=== PATIENT | male | born 1930 | race Caucasian/White ===

== ENCOUNTER 2018-02-09 07:42 | Emergency (ER) | payer OTHER ==
[2018-02-09] MEDS ORDERED: FLEET ENEMA ADULT PR ONE (08:12)
--- NOTE | 2018-02-09 09:05 | ER ---
Nurse's Notes [facility] Name: Ramone Clark Age: 87 yrs Sex: Male : 1930 Arrival Date: 02/09/2018 Time: 07:44 Bed 5 Private MD: Dennis Mandujano C Diagnosis: Constipation;Fecal impaction Presentation: 02/09 07:53 Presenting complaint: Patient states: it started with diarrhea few days ago and i took hj Imodium after which the diarrhea stopped and i couldn't pooped anymore, reports no BM for 3 days; reports abd pain; denies N/V;. Transition of care: patient was not received from another setting of care. Onset of symptoms was February 09, 2018. Risk Assessment: Do you want to hurt yourself or someone else? Patient reports no desire to harm self or others. Initial Sepsis Screen: Does the patient meet any 2 criteria? No. Patient's initial sepsis screen is negative. Does the patient have a suspected source of infection? No. Patient's initial sepsis screen is negative. Care prior to arrival: None. 07:53 Method Of Arrival: Ambulatory 07:53 Acuity: CARRIE 3 hj Triage Assessment: 07:55 General: Appears in no apparent distress. uncomfortable, Behavior is calm, cooperative, hj appropriate for age. Pain: Complains of pain in abdomen. GI: Reports lower abdominal pain, constipation, Patient currently denies nausea. 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 - Social history:: Smoking status: Patient/guardian denies using tobacco, Patient/guardian denies using alcohol. - Ebola Screening: : Patient negative for fever greater than or equal to 101.5 degrees Fahrenheit, and additional compatible Ebola Virus Disease symptoms Patient denies exposure to infectious person Patient denies travel to an Ebola-affected area in the 21 days before illness onset. Screenin:55 Abuse screen: Denies threats or abuse. Denies injuries from another. Nutritional hj screening: No deficits noted. Tuberculosis screening: No symptoms or risk factors identified. Fall Risk None identified. Assessment: 07:56 GI: Bowel sounds Abd is soft Abdomen is tender to palpation. hj 08:15 General: Appears in no apparent distress. Behavior is calm, cooperative. Pain: Denies la1 pain. Neuro: Level of Consciousness is awake, alert, obeys commands. Cardiovascular: Capillary refill < 3 seconds Patient's skin is warm and dry. Respiratory: Airway is patent Respiratory effort is even, unlabored, Respiratory pattern is regular, symmetrical. GI: Reports constipation. : No signs and/or symptoms were reported regarding the genitourinary system. 08:49 Reassessment: pt had BM x3 with soap suds enema, states he feels much better. la1 Vital Signs: 07:53 BP 100 / 67; Pulse 71; Resp 18; Temp 97.8(TE); Pulse Ox 98% on R/A; Weight 61.23 kg; hj Height 5 ft. 8 in. (172.72 cm); 07:53 Body Mass Index 20.53 (61.23 kg, 172.72 cm) ED Course: 07:44 Patient arrived in ED. sb2 07:45 Dennis Mandujano MD is Private Physician. sb2 07:48 Irving Head MD is Attending Physician. gs 07:53 Cade Jaime RN is Primary Nurse. hj 07:55 Triage completed. hj 07:56 Arm band placed on right wrist. hj 08:00 Patient has correct armband on for positive identification. Bed in low position. Call light in reach. Side rails up X 1. Adult w/ patient. 08:50 No provider procedures requiring assistance completed. Patient did not have IV access la1 during this emergency room visit. Administered Medications: 08:13 Drug: Fleet Enema 133 ml Route: NE; hj 08:36 Follow up: Response: No adverse reaction; No change in condition la1 Outcome: 09:05 Discharge ordered by . carlos 09:05 Discharged to home ambulatory. la1 09:05 Condition: stable 09:05 Discharge instructions given to patient, Instructed on discharge instructions, follow up and referral plans. medication usage, Demonstrated understanding of instructions, follow-up care. 09:06 Patient left the ED. la1 Signatures: Zia Underwood RN RN la1 Cade Jaime RN RN hj Starr, Gregory, MD MD gs Billeau, Sheri sb2 Corrections: (The following items were deleted from the chart) 07:56 07:55 GI: Reports lower abdominal pain, constipation, nausea, silvia vega
--- NOTE | 2018-02-09 09:05 | EDPHYS ---
Physician Documentation [facility] Name: Ramone Clark Age: 87 yrs Sex: Male : 1930 Arrival Date: 02/09/2018 Time: 07:44 Bed 5 Private MD: Dennis Mandujano C ED Physician Irving Head HPI: 02/09 09:15 This 87 yrs old Male presents to ER via Ambulatory with complaints of gs Constipation. 09:15 Onset: The symptoms/episode began/occurred 1 week(s) ago, and became persistent. gs Modifying factors: The symptoms are alleviated by bm The symptoms are aggravated by nothing. Associate signs and symptoms: Pertinent negatives: abdominal pain, dysuria, fever, lower GI bleeding. The patient has experienced similar episodes in the past, chronically. 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 - Social history:: Smoking status: Patient/guardian denies using tobacco, Patient/guardian denies using alcohol. - Ebola Screening: : Patient negative for fever greater than or equal to 101.5 degrees Fahrenheit, and additional compatible Ebola Virus Disease symptoms Patient denies exposure to infectious person Patient denies travel to an Ebola-affected area in the 21 days before illness onset. ROS: 09:15 All other systems are negative. gs Exam: 09:15 Head/Face: Normocephalic, atraumatic. Eyes: Pupils equal round and reactive to light, gs extra-ocular motions intact. Lids and lashes normal. Conjunctiva and sclera are non-icteric and not injected. Cornea within normal limits. Periorbital areas with no swelling, redness, or edema. ENT: Nares patent. No nasal discharge, no septal abnormalities noted. Tympanic membranes are normal and external auditory canals are clear. Oropharynx with no redness, swelling, or masses, exudates, or evidence of obstruction, uvula midline. Mucous membranes moist. Neck: Trachea midline, no thyromegaly or masses palpated, and no cervical lymphadenopathy. Supple, full range of motion without nuchal rigidity, or vertebral point tenderness. No Meningismus. Chest/axilla: Normal chest wall appearance and motion. Nontender with no deformity. No lesions are appreciated. Cardiovascular: Regular rate and rhythm with a normal S1 and S2. No gallops, murmurs, or rubs. Normal PMI, no JVD. No pulse deficits. Respiratory: Lungs have equal breath sounds bilaterally, clear to auscultation and percussion. No rales, rhonchi or wheezes noted. No increased work of breathing, no retractions or nasal flaring. Back: No spinal tenderness. No costovertebral tenderness. Full range of motion. Skin: Warm, dry with normal turgor. Normal color with no rashes, no lesions, and no evidence of cellulitis. MS/ Extremity: Pulses equal, no cyanosis. Neurovascular intact. Full, normal range of motion. Neuro: Awake and alert, GCS 15, oriented to person, place, time, and situation. Cranial nerves II-XII grossly intact. Motor strength 5/5 in all extremities. Sensory grossly intact. Cerebellar exam normal. Normal gait. 09:15 Constitutional: The patient appears alert, awake. 09:15 Abdomen/GI: Palpation: abdomen is soft and non-tender, in all quadrants, Rectal exam: Stool: normal, fecal impaction, that is mild, the exam is chaperoned by the nurse. Vital Signs: 07:53 BP 100 / 67; Pulse 71; Resp 18; Temp 97.8(TE); Pulse Ox 98% on R/A; Weight 61.23 kg; hj Height 5 ft. 8 in. (172.72 cm); 07:53 Body Mass Index 20.53 (61.23 kg, 172.72 cm) Procedures: 09:15 Performed enema tolerated well. MDM: 08:01 Patient medically screened. 09:15 Data reviewed: vital signs, nurses notes. Response to treatment: the patient's symptoms gs have markedly improved after treatment, and as a result, I will discharge patient. 02/09 08:37 Order name: Heydi. Order: Soap Suds Enema; Complete Time: 08:37 la1 Administered Medications: 08:13 Drug: Fleet Enema 133 ml Route: DC; 08:36 Follow up: Response: No adverse reaction; No change in condition la1 Disposition: 02/09/18 09:05 Discharged to Home. Impression: Constipation, Fecal impaction. - Condition is Stable. - Discharge Instructions: Constipation, Adult, [id number]. - Prescriptions for Miralax 17 gram/dose Oral - take 1 packet by ORAL route once daily dilute powder in 8 ounces of water or juice; 1 bottle. - Medication Reconciliation Form, Thank You Letter, Antibiotic Education, Prescription Opioid Use form. - Follow up: Private Physician; When: 2 - 3 days; Reason: Re-evaluation by your physician. Signatures: Zia Underwood RN RN [facility] Cade Jaime RN RN Irving Head MD MD Corrections: (The following items were deleted from the chart) 09:05 09:05 02/09/2018 09:05 Discharged to Home. Impression: Constipation. Condition is gs Stable. Forms are Medication Reconciliation Form, Thank You Letter, Antibiotic Education, Prescription Opioid Use. Follow up: Private Physician; When: 2 - 3 days; Reason: Re-evaluation by your physician. 09:06 09:05 02/09/2018 09:05 Discharged to Home. Impression: Constipation; Fecal impaction. la1 Condition is Stable. Forms are Medication Reconciliation Form, Thank You Letter, Antibiotic Education, Prescription Opioid Use. Follow up: Private Physician; When: 2 - 3 days; Reason: Re-evaluation by your physician.
[2018-02-09 09:10] VITALS: BP 100/67; TEMP 97.8; O2SAT 98
== END 2018-02-09 09:06 | disposition home or self-care (01) ==
LOC: ER 07:42
DX: K56.41 Fecal impaction (principal); I10 Essential (primary) hypertension; E78.5 Hyperlipidemia, unspecified; Z79.01 Long term (current) use of anticoagulants; Z95.2 Presence of prosthetic heart valve
CPT/HCPCS: 99283

== ENCOUNTER 2018-04-19 09:46 | Emergency (ER) | payer OTHER ==
[2018-04-19] MEDS ORDERED: ACETAMINOPHEN 325 MG TABLET ONE (10:23)
--- NOTE | 2018-04-19 11:00 | RAD REPORT ---
EXAM DESCRIPTION: CT - [id number] - 04/19/2018 10:43 am CLINICAL HISTORY: Trauma, head and neck injury. fall COMPARISON: Spine Lumbar Wo Con dated 04/19/2018 TECHNIQUE: Axial 5 mm thick images of the head were obtained. Axial 2 mm thick images of the cervical spine were obtained with sagittal and coronal reconstruction images generated and reviewed. All CT scans are performed using dose optimization technique as appropriate and may include automated exposure control or mA/KV adjustment according to patient size. FINDINGS: CT HEAD WITHOUT CONTRAST: No acute hemorrhage, hydrocephalus or extra-axial collection is identified.Mild generalized brain atr ophy.No areas of brain edema or midline shift. Moderate mucosal thickening involves the left sphenoid sinus. Paranasal sinuses mastoids are otherwis e clear.The calvarium is intact. CT CERVICAL SPINE WITHOUT CONTRAST: No fracture or subluxation.Mild spondylosis of the cervical spine.No prevertebral soft tissues swelli ng is identified. IMPRESSION: No acute intracranial or cervical spine findings.
--- NOTE | 2018-04-19 11:02 | RAD REPORT ---
EXAM DESCRIPTION: CT - Spine Lumbar Wo Con - 04/19/2018 10:44 am CLINICAL HISTORY: Radiculopathy. fall, low back pain COMPARISON: SPINE THORACIC-W/SWIMMERS dated 08/20/2011 TECHNIQUE: Axial noncontrast CT imaging of the lumbar spine was performed with coronal and sagittal re-formatted images. All CT scans are performed using dose optimization technique as appropriate and may include automated exposure control or mA/KV adjustment according to patient size. FINDINGS: Mild compression deformity is seen affecting the L1 vertebral body, likely acute. Loss of vertebral body height estimated at 10%. Mild reticulation of the surrounding paraspinal tissues. No c anal compromise. Heavy aortic atherosclerosis. Several renal cysts are present. IMPRESSION: Mild anterior wedge compression fracture affecting L1 vertebral body, acute in appearanc e. No canal compromise.
[2018-04-19] MEDS ORDERED: MORPHINE 2 MG/ML SYR ONE (11:30)
--- NOTE | 2018-04-19 13:15 | EDPHYS ---
Physician Documentation [facility] Name: Ramnoe Clark Age: 87 yrs Sex: Male : 1930 Arrival Date: 04/19/2018 Time: 09:49 Bed 20 Private MD: Dennis Mandujano C ED Physician Gregory Devine HPI: 04/19 10:17 This 87 yrs old Male presents to ER via Ambulatory with complaints of Fall jmm Injury. 10:17 Details of fall: The patient fell from an upright position. Onset: The symptoms/episode jmm began/occurred acutely, just prior to arrival. Associated injuries: The patient sustained injury to the low back. This is a 87 year old male with a history of hlp, htn that presents to the ED with complaints of lower back pain. Patient states he lost balance while turning from a standing position. Patient unsure whether he hit his head. Denies radiation of pain, denies fecal incontience, denies urinary retention. Denies numbness. . Historical: - Allergies: 10:05 No Known Allergies; sg - PMHx: 10:05 Hyperlipidemia; Hypertension; sg - Immunization history: Last tetanus immunization: unknown. - Social history:: Smoking status: Patient/guardian denies using tobacco. - Ebola Screening: : No symptoms or risks identified at this time. ROS: 10:17 Constitutional: Negative for fever, chills, and weight loss, Cardiovascular: Negative jmm for chest pain, palpitations, and edema, Respiratory: Negative for shortness of breath, cough, wheezing, and pleuritic chest pain. 10:17 Back: Positive for pain with movement. 10:17 Neuro: Negative for headache, loss of consciousness. 10:17 All other systems are negative. Exam: 10:17 Constitutional: This is a well developed, well nourished patient who is awake, alert, jmm and in no acute distress. Head/Face: atraumatic. Eyes: EOMI, no conjunctival erythema appreciated ENT: Moist Mucus Membranes Neck: Trachea midline, Supple 10:17 Chest/axilla: Inspection: normal, Palpation: is normal. 10:17 Cardiovascular: Rate: normal, Rhythm: regular, Pulses: no pulse deficits are appreciated. 10:17 Respiratory: the patient does not display signs of respiratory distress, Respirations: normal, Breath sounds: are clear throughout. 10:17 Abdomen/GI: Inspection: abdomen appears normal, Bowel sounds: normal. 10:17 Back: ROM is normal. 10:17 Musculoskeletal/extremity: ROM: intact in all extremities. 10:17 Skin: Appearance: Color: 10:17 Neuro: Orientation: is normal, Mentation: is normal, Memory: is normal, Cranial nerves: 10:17 Psych: Behavior/mood is pleasant, cooperative. Vital Signs: 10:07 BP 145 / 86; Pulse 60; Resp 18; Temp 97.7; Pulse Ox 100% on R/A; Weight 77.11 kg; Pain sg 7/10; 11:07 BP 139 / 74; Pulse 60; Resp 16; Pulse Ox 99% on R/A; Pain 7/10; em 11:50 BP 128 / 67; Pulse 59; Resp 18; Pulse Ox 95% on R/A; em 12:30 BP 143 / 77; Pulse 56; Resp 18; Pulse Ox 99% on R/A; Pain 6/10; em Cleveland Coma Score: 10:07 Eye Response: spontaneous(4). Verbal Response: oriented(5). Motor Response: obeys sg commands(6). Total: 15. Trauma Score (Adult): 10:07 Eye Response: spontaneous(1); Verbal Response: oriented(1); Motor Response: obeys sg commands(2); Systolic BP: > 89 mm Hg(4); Respiratory Rate: 10 to 29 per min(4); [place] Score: 15; Trauma Score: 12 MDM: 10:06 Patient medically screened. [facility] 13:13 Data reviewed: vital signs, nurses notes. Counseling: I had a detailed discussion with higinio the patient and/or guardian regarding: the historical points, exam findings, and any diagnostic results supporting the discharge/admit diagnosis, radiology results, the need for outpatient follow up, to return to the emergency department if symptoms worsen or persist or if there are any questions or concerns that arise at home. ED course: Patient is able to ambulate in the ED. Extensor hallucis longus intact bilaterally. Patient prescribed tylenol with codeine with opiod precautions. Family will closely monitor patient. Patient has no symptoms currently concerning for cord compression. Advised to follow up with spine surgery. Given return precautions. . 04/19 10:11 Order name: CT Head C Spine; Complete Time: 11:07 [facility] 04/19 10:11 Order name: CT Lumbar Spine Wo Con; Complete Time: 11:07 [facility] Administered Medications: 10:13 Drug: Tylenol 650 mg Route: PO; em 11:09 Follow up: Response: No adverse reaction em 11:25 Drug: morphine 2 mg Route: IM; Site: right deltoid; em 12:30 Follow up: Response: No adverse reaction; Pain is decreased em Disposition: 04/19/18 13:15 Discharged to Home. Impression: Wedge compression fracture of unspecified lumbar vertebra. - Condition is Stable. - Discharge Instructions: Spinal Compression Fracture. - Prescriptions for Tylenol- Codeine #3 300-30 mg Oral Tablet - take 1 tablet by ORAL route every 6 hours As needed; 20 tablet. - Medication Reconciliation Form, Thank You Letter, Antibiotic Education, Prescription Opioid Use form. - Follow up: Dennis Mandujano MD; When: 2 - 3 days; Reason: Recheck today's complaints, Continuance of care, Re-evaluation by your physician. Follow up: Hu Colindres MD; When: 2 - 3 days; Reason: Recheck today's complaints, Continuance of care, Re-evaluation by your physician. Addendum: 04/21/2018 07:39 Co-signature as Attending Physician, Gregory Devine MD I agree with the assessment and c sevilla plan of care. Signatures: Dispatcher [employer] Lon Irizarry, RN RN Gregory Devine MD MD cha Mickail, Joel PA PA Conor Warren, DEPUTY CONTROLLER DEPUTY CONTROLLER Lurdes Herrera, RN RN Corrections: (The following items were deleted from the chart) 04/19 13:24 13:15 04/19/2018 13:15 Discharged to Home. Impression: Wedge compression fracture of em unspecified lumbar vertebra. Condition is Stable. Forms are Medication Reconciliation Form, Thank You Letter, Antibiotic Education, Prescription Opioid Use. Follow up: Dennis Mandujano; When: 2 - 3 days; Reason: Recheck today's complaints, Continuance of care, Re-evaluation by your physician. Follow up: Hu Colindres; When: 2 - 3 days; Reason: Recheck today's complaints, Continuance of care, Re-evaluation by your physician. higinio
--- NOTE | 2018-04-19 13:15 | ER ---
Nurse's Notes [facility] Name: Ramone Clark Age: 87 yrs Sex: Male : 1930 Arrival Date: 04/19/2018 Time: 09:49 Bed 20 Private MD: Dennis Mandujano C Diagnosis: Wedge compression fracture of unspecified lumbar vertebra Presentation: 04/19 10:05 Presenting complaint: Patient states: Reports became unbalanced while standing, fell sg hitting the Right side of back and Right hip area on the ground, denies any trauma to the head, denies LOC, reports is able to walk and stand but reports the pain is made worse by activity. Care prior to arrival: None. Mechanism of Injury: Fall from standing position. Trauma event details: Injury occurred in the [facility]. 10:05 Acuity: CARRIE 3 sg 10:05 Method Of Arrival: Ambulatory sg Historical: - Allergies: 10:05 No Known Allergies; sg - PMHx: 10:05 Hyperlipidemia; Hypertension; sg - Immunization history: Last tetanus immunization: unknown. - Social history:: Smoking status: Patient/guardian denies using tobacco. - Ebola Screening: : No symptoms or risks identified at this time. Screenin:10 Nutritional screening: No deficits noted. Fall Risk Ambulatory Aid- em Crutches/Cane/Walker (15 pts). Gait- Weak (10 pts.). Mental Status- Total Mann Fall Scale indicates Low Risk Score (25-44 pts). Side Rails Up X 2 Placed close to Nursing Station Family Present and informed to notify staff if they need to leave bedside. 10:11 Abuse screen: Denies threats or abuse. Denies injuries from another. Tuberculosis sg screening: No symptoms or risk factors identified. Never had TB. Primary Survey: 10:09 NO uncontrolled hemorrhage observed. A: The patient is alert. Airway: patent, No sg supplemental oxygen in use on arrival. Oral cavity: clear, Trachea midline. Breathing/Chest: Respiratory pattern: regular, Respiratory effort: spontaneous, unlabored, Breath sounds: clear, Chest inspection: symmetrical rise and fall of the chest. Circulation: Heart tones present. Skin color: pink, Skin temperature: warm, dry. Disability Alert. Exposure/Environment: There is no evidence of uncontrolled external bleeding. No obvious injuries are noted at this time. A warming method has been applied: A warm blanket has been provided to the patient. Secondary Survey: 10:10 HEENT: Head No injury/deformity Face No injury/deformity Eyes: No injury or deformity sg noted. Ears: clear Nose: clear Throat: No injury or deformity noted. Gastrointestinal: Abdomen is flat, non-distended, Palpation No deficit noted. : No signs and/or symptoms were reported regarding the genitourinary system. Musculoskeletal: Circulation, motion, and sensation intact. Range of motion: intact in all extremities, Swelling absent Reports pain in back and right hip. Assessment: 10:17 General: Appears in no apparent distress. uncomfortable, Behavior is calm, cooperative, em reports mechanical fall and landing on bottom, does not know if pt hit his head, son at bedside. Pain: Complains of pain in pelvis and back. Neuro: Level of Consciousness is awake, alert, obeys commands, Oriented to person, place, time, situation. Cardiovascular: Capillary refill < 3 seconds Patient's skin is warm and dry. Respiratory: Airway is patent Respiratory effort is even, unlabored, Respiratory pattern is regular, symmetrical. GI: Abdomen is flat. Derm: Skin is intact, is thin, Skin is pink, warm \T\ dry. Musculoskeletal: Range of motion: intact in all extremities. 10:22 Reassessment: I agree with previous assessment. hb 11:10 Reassessment: Patient appears in no apparent distress at this time. Patient and/or em family updated on plan of care and expected duration. Pain level reassessed. Patient is alert, oriented x 3, equal unlabored respirations, skin warm/dry/pink. reports feeling a little better, rates pain 7/10, Dr. Mandujano at bedside, family present. 11:50 Reassessment: Patient appears in no apparent distress at this time. Patient and/or em family updated on plan of care and expected duration. Pain level reassessed. Patient is alert, oriented x 3, equal unlabored respirations, skin warm/dry/pink. reports pain 6/10, provider notified. 13:00 Reassessment: Patient appears in no apparent distress at this time. Patient and/or em family updated on plan of care and expected duration. Pain level reassessed. Patient is alert, oriented x 3, equal unlabored respirations, skin warm/dry/pink. eating crackers and drinking water, family at bedside Patient states feeling better. Vital Signs: 10:07 BP 145 / 86; Pulse 60; Resp 18; Temp 97.7; Pulse Ox 100% on R/A; Weight 77.11 kg; Pain sg 7/10; 11:07 BP 139 / 74; Pulse 60; Resp 16; Pulse Ox 99% on R/A; Pain 7/10; em 11:50 BP 128 / 67; Pulse 59; Resp 18; Pulse Ox 95% on R/A; em 12:30 BP 143 / 77; Pulse 56; Resp 18; Pulse Ox 99% on R/A; Pain 6/10; em [place] Coma Score: 10:07 Eye Response: spontaneous(4). Verbal Response: oriented(5). Motor Response: obeys sg commands(6). Total: 15. Trauma Score (Adult): 10:07 Eye Response: spontaneous(1); Verbal Response: oriented(1); Motor Response: obeys sg commands(2); Systolic BP: > 89 mm Hg(4); Respiratory Rate: 10 to 29 per min(4); [place] Score: 15; Trauma Score: 12 ED Course: 09:49 Patient arrived in ED. mr 09:49 Dennis Mandujano MD is Private Physician. mr 10:01 Conor Vaelnzuela LVN is Primary Nurse. em 10:04 Ramone Nicholson PA is PHCP. jmm 10:04 Gregory Devine MD is Attending Physician. jm 10:06 Triage completed. sg 10:11 Patient has correct armband on for positive identification. Call light in reach. Side sg rails up X2. Adult w/ patient. Patient maintains SpO2 saturation greater than 95% on room air. 10:15 Thermoregulation: warm blanket given to patient. hb 10:43 CT Head C Spine In Process Unspecified. EDMS 10:44 CT Lumbar Spine Wo Con In Process Unspecified. EDMS 13:14 Dennis Mandujano MD is Referral Physician. jmm 13:14 Hu Colindres MD is Referral Physician. jmm 13:23 No provider procedures requiring assistance completed. Patient did not have IV access em during this emergency room visit. Administered Medications: 10:13 Drug: Tylenol 650 mg Route: PO; em 11:09 Follow up: Response: No adverse reaction em 11:25 Drug: morphine 2 mg Route: IM; Site: right deltoid; em 12:30 Follow up: Response: No adverse reaction; Pain is decreased em Intake: 10:07 PO: 0ml; Total: 0ml. sg Outcome: 13:15 Discharge ordered by . kacie 13:23 Discharged to home via wheelchair, with family. em 13:23 Condition: good 13:23 Patient's length of stay in the Emergency Department was greater than 2 hours. pain controlPatient's length of stay extended due to 13:23 Discharge instructions given to patient, family, Instructed on discharge instructions, em follow up and referral plans. medication usage, Demonstrated understanding of instructions, follow-up care, medications, Prescriptions given X 1. 13:24 Patient left the ED. em Signatures: Dispatcher [employer] Lon Irizarry, RN RN sg Ramone Nicholson PA PA jmm Rivera, Mary mr Munoz, Conor, PRINT TRAFFIC MANAGER PRINT TRAFFIC MANAGER em Lurdes Herrera RN RN Corrections: (The following items were deleted from the chart) :24 13:23 Discharged to home via wheelchair, with family, em em :24 13:23 Condition: good em em :24 13:23 Patient's length of stay in the Emergency Department was greater than 2 hours. em pain controlPatient's length of stay extended due to em
[2018-04-19 13:41] VITALS: TEMP 97.7
[2018-04-19 13:46] VITALS: BP 143/77; O2SAT 99
== END 2018-04-19 13:24 | disposition home or self-care (01) ==
LOC: ER 09:46
DX: M48.56XA Collapsed vertebra, not elsewhere classified, lumbar region, initial encounter for fracture (principal); I10 Essential (primary) hypertension; E78.5 Hyperlipidemia, unspecified; W19.XXXA Unspecified fall, initial encounter
CPT/HCPCS: 70450; 72125; 72131; 96372; 99284; J2270

== ENCOUNTER 2018-05-22 12:18 | Emergency (ER) | payer OTHER ==
--- NOTE | 2018-05-22 14:52 | EDPHYS ---
Physician Documentation [facility] Name: Ramone Clark Age: 87 yrs Sex: Male : 1930 Arrival Date: 05/22/2018 Time: 12:21 Bed 20 Private MD: Dennis Mandujano C ED Physician Gus Meehan HPI: 05/22 14:50 This 87 yrs old Male presents to ER via Ambulatory with complaints of pm1 Constipation. 14:50 The patient presents with constipation. Onset: The symptoms/episode began/occurred 4 pm1 day(s) ago. Associated signs and symptoms: Pertinent negatives: nausea, vomiting, and diarrhea, chest pain, dysuria, fever, shortness of breath, abdominal pain. Modifying factors: The symptoms are alleviated by nothing, the symptoms are aggravated by nothing. Severity of pain: in the emergency department the pain is a 0 / 10. The patient has experienced similar episodes in the past, several times. The patient has not recently seen a physician. Miralax has not been helping him. Patient takes pain medications at night for lumbar compression fracture. Historical: - Home Meds: 12:37 alprazolam 1 mg Oral tab 2 tabs nightly [Active]; amlodipine 5 mg tab 1 tab twice a day hb [Active]; atorvastatin 20 mg Oral tab 1 tab once daily [Active]; carvedilol 25 mg Oral tab 1 tab 2 times per day [Active]; clonidine HCl 0.1 mg Oral tab 1 tab 3 times per day [Active]; furosemide 40 mg Oral tab 1 tab once daily [Active]; mirtazapine 15 mg Oral tab 1 tab once daily [Active]; warfarin 1 mg Oral tab 1 tab once daily [Active]; - PMHx: 12:37 Hyperlipidemia; Hypertension; hb - Immunization history:: Adult Immunizations up to date. - Social history:: Smoking status: Patient/guardian denies using tobacco. - Ebola Screening: : No symptoms or risks identified at this time. ROS: 14:50 Constitutional: Negative for fever, chills, and weight loss, Eyes: Negative for injury, pm1 pain, redness, and discharge, ENT: Negative for injury, pain, and discharge, Neck: Negative for injury, pain, and swelling, Cardiovascular: Negative for chest pain, palpitations, and edema, Respiratory: Negative for shortness of breath, cough, wheezing, and pleuritic chest pain. 14:50 Back: Negative for injury and pain, : Negative for injury, bleeding, discharge, and swelling, MS/Extremity: Negative for injury and deformity, Skin: Negative for injury, rash, and discoloration, Neuro: Negative for headache, weakness, numbness, tingling, and seizure. 14:50 Abdomen/GI: Positive for constipation, Negative for abdominal pain, nausea, vomiting, and diarrhea. Exam: 14:50 Constitutional: This is a well developed, well nourished patient who is awake, alert, pm1 and in no acute distress. Head/Face: Normocephalic, atraumatic. Neck: Trachea midline, no thyromegaly or masses palpated, and no cervical lymphadenopathy. Supple, full range of motion without nuchal rigidity, or vertebral point tenderness. No Meningismus. Chest/axilla: Normal chest wall appearance and motion. Nontender with no deformity. No lesions are appreciated. Cardiovascular: Regular rate and rhythm with a normal S1 and S2. No gallops, murmurs, or rubs. Normal PMI, no JVD. No pulse deficits. Respiratory: Lungs have equal breath sounds bilaterally, clear to auscultation and percussion. No rales, rhonchi or wheezes noted. No increased work of breathing, no retractions or nasal flaring. 14:50 Abdomen/GI: Inspection: abdomen appears normal, Bowel sounds: normal, Palpation: abdomen is soft and non-tender, in all quadrants, mass, is not appreciated, rebound tenderness, is not appreciated, Rectal exam: rectal tone normal, Stool: normal, brown, guaiac negative, hemorrhoid(s), are not appreciated, mass, is not appreciated, swelling, is not appreciated, tenderness, is not appreciated, PJ RN, Large amount of soft stool present during rectal examination. Vital Signs: 12:37 BP 146 / 82; Pulse 75; Resp 16; Temp 97.9; Pulse Ox 100% on R/A; Pain 4/10; hb 13:30 BP 137 / 81; Pulse 71; Resp 18; Pulse Ox 99% on R/A; ph 14:45 BP 124 / 78; Pulse 76; Resp 18; Pulse Ox 99% on R/A; ph MDM: 12:38 Patient medically screened. pm1 14:50 Data reviewed: vital signs. Data interpreted: Pulse oximetry: on room air is 100 %. pm1 Interpretation: normal. Counseling: I had a detailed discussion with the patient and/or guardian regarding: the historical points, exam findings, and any diagnostic results supporting the discharge/admit diagnosis, the need for outpatient follow up, to return to the emergency department if symptoms worsen or persist or if there are any questions or concerns that arise at home. 14:55 ED course: Patient positive for bowel movement and wants to go home. pm1 05/22 13:22 Order name: Heydi. Order: Soap suds enema; Complete Time: 15:22 pm1 Administered Medications: No medications were administered Disposition: 16:20 Co-signature as Attending Physician, Gus Meehan MD I agree with the assessment and kdr plan of care. Disposition: 05/22/18 14:51 Discharged to Home. Impression: Constipation. - Condition is Stable. - Discharge Instructions: Constipation, Adult. - Medication Reconciliation Form, Thank You Letter, Antibiotic Education, Prescription Opioid Use form. - Follow up: Emergency Department; When: As needed; Reason: Worsening of condition. Follow up: Private Physician; When: 2 - 3 days; Reason: Recheck today's complaints, Continuance of care, Re-evaluation by your physician. - Problem is new. - Symptoms have improved. Signatures: Gus Meehan MD MD [facility] Lisette Rogers RN RN ph Zan Oliveros, METAL ROASTER METAL ROASTER pm1 Lurdes Herrera RN RN Corrections: (The following items were deleted from the chart) 15:22 14:51 05/22/2018 14:51 Discharged to Home. Impression: Constipation. Condition is ph Stable. Forms are Medication Reconciliation Form, Thank You Letter, Antibiotic Education, Prescription Opioid Use. Follow up: Emergency Department; When: As needed; Reason: Worsening of condition. Follow up: Private Physician; When: 2 - 3 days; Reason: Recheck today's complaints, Continuance of care, Re-evaluation by your physician. Problem is new. Symptoms have improved. pm1
--- NOTE | 2018-05-22 14:52 | ER ---
Nurse's Notes [facility] Name: Ramone Clark Age: 87 yrs Sex: Male : 1930 Arrival Date: 05/22/2018 Time: 12:21 Bed 20 Private MD: Dennis Mandujano C Diagnosis: Constipation Presentation: 05/22 12:35 Presenting complaint: Patient states: Constipation x 4-5 days. Denies N/V/fever. hb Transition of care: patient was not received from another setting of care. Onset of symptoms was May 18, 2018. Risk Assessment: Do you want to hurt yourself or someone else? Patient reports no desire to harm self or others. Care prior to arrival: None. 12:35 Method Of Arrival: Ambulatory hb 12:35 Acuity: CARRIE 3 hb 13:00 Initial Sepsis Screen: Does the patient meet any 2 criteria? No. Patient's initial ph sepsis screen is negative. Does the patient have a suspected source of infection? No. Patient's initial sepsis screen is negative. Historical: - Home Meds: 12:37 alprazolam 1 mg Oral tab 2 tabs nightly [Active]; amlodipine 5 mg tab 1 tab twice a day hb [Active]; atorvastatin 20 mg Oral tab 1 tab once daily [Active]; carvedilol 25 mg Oral tab 1 tab 2 times per day [Active]; clonidine HCl 0.1 mg Oral tab 1 tab 3 times per day [Active]; furosemide 40 mg Oral tab 1 tab once daily [Active]; mirtazapine 15 mg Oral tab 1 tab once daily [Active]; warfarin 1 mg Oral tab 1 tab once daily [Active]; - PMHx: 12:37 Hyperlipidemia; Hypertension; hb - Immunization history:: Adult Immunizations up to date. - Social history:: Smoking status: Patient/guardian denies using tobacco. - Ebola Screening: : No symptoms or risks identified at this time. Screenin:00 Abuse screen: Denies threats or abuse. Denies injuries from another. Nutritional ph screening: No deficits noted. Tuberculosis screening: No symptoms or risk factors identified. Fall Risk None identified. Assessment: 13:00 General: Appears in no apparent distress. comfortable, slender, well groomed, Behavior ph is calm, cooperative, appropriate for age, Denies fever. Pain: Complains of pain in abdomen. Neuro: Level of Consciousness is awake, alert, obeys commands, Oriented to person, place, time, situation. Cardiovascular: Capillary refill < 3 seconds in bilateral fingers Patient's skin is warm and dry. Respiratory: Airway is patent Respiratory effort is even, unlabored. GI: Abdomen is flat, non-distended, Bowel sounds present X 4 quads. Abd is soft and non tender X 4 quads. Reports constipation, Patient currently denies nausea, vomiting. Derm: Skin is intact, is healthy with good turgor, Skin is pink, warm \\T\\ dry. Musculoskeletal: Circulation, motion, and sensation intact. Range of motion: intact in all extremities. 14:30 Reassessment: Patient appears in no apparent distress at this time. Patient and/or ph family updated on plan of care and expected duration. Pain level reassessed. Patient is alert, oriented x 3, equal unlabored respirations, skin warm/dry/pink. Soap suds enema administered per ERP order, moderate amount of stool in bedside commode, soft in appearance, pt states, " I am feeling much better, thank you.". 15:00 Reassessment: Patient appears in no apparent distress at this time. Patient and/or ph family updated on plan of care and expected duration. Pain level reassessed. Patient is alert, oriented x 3, equal unlabored respirations, skin warm/dry/pink. Vital Signs: 12:37 BP 146 / 82; Pulse 75; Resp 16; Temp 97.9; Pulse Ox 100% on R/A; Pain 4/10; hb 13:30 BP 137 / 81; Pulse 71; Resp 18; Pulse Ox 99% on R/A; ph 14:45 BP 124 / 78; Pulse 76; Resp 18; Pulse Ox 99% on R/A; ph ED Course: 12:21 Patient arrived in ED. ag5 12:21 Dennis Mandujano MD is Private Physician. ag5 12:36 Triage completed. hb 12:36 Zan Oliveros NP is PHCP. pm1 12:36 Gus Meehan MD is Attending Physician. pm1 12:37 Arm band placed on. hb 13:00 Patient has correct armband on for positive identification. Placed in gown. Bed in low ph position. Call light in reach. Side rails up X2. Pulse ox on. NIBP on. Door closed. Noise minimized. Warm blanket given. 13:04 Lisette Rogers, RN is Primary Nurse. ph 14:30 Soap suds enema given. Patient tolerated well. ph 15:20 No provider procedures requiring assistance completed. Patient did not have IV access ph during this emergency room visit. Administered Medications: No medications were administered Outcome: 14:51 Discharge ordered by MD. pm1 15:22 Patient left the ED. ph 15:22 Discharged to home ambulatory. ph 15:22 Condition: good 15:22 Discharge instructions given to pt left before signing papers, no prescriptions Signatures: Lisette Rogers, RN RN Zan Gloria, SONIA HARVESTING MANAGER pm1 Lurdes Herrera RN RN Meryl Negron ag5
[2018-05-22 15:40] VITALS: BP 146/82; TEMP 97.9; O2SAT 100
== END 2018-05-22 15:22 | disposition home or self-care (01) ==
LOC: ER 12:18
DX: K59.00 Constipation, unspecified (principal); E78.5 Hyperlipidemia, unspecified; I10 Essential (primary) hypertension
CPT/HCPCS: 99284

== ENCOUNTER 2019-10-20 07:10 | Inpatient (IN) | payer OTHER ==
[2019-10-20] MEDS ORDERED: Caclcium Chloride 10% INJ SYR IV ONE (07:22)
[2019-10-20 08:35] LABS: Absolute Lymphocytes (CBC) 0.5 K/uL (0.7-4.9); Basophils % 0.7 % (0-1.3); Hematocrit 38.1 % (39.6-49.0); Lymphocytes % 7.9 % (15.3-44.8); MPV 9.1 fL (7.6-11.3); RBC Red Blood Cell Count 3.71 M/uL (4.33-5.43)
[2019-10-20 09:01] LABS: Protime INR 6.65
[2019-10-20 09:03] LABS: Albumin 3.2 g/dL (3.4-5.0); Bilirubin Direct 0.2 mg/dL (0-0.2); Bilirubin Total 0.5 mg/dL (0.2-1.0); Magnesium 2.6 mg/dL (1.8-2.4); Protein, Total 7.8 g/dL (6.4-8.2); Troponin (Emerg Dept Use Only) 0.08 ng/mL (0.0-0.045)
[2019-10-20 09:04] LABS: Potassium 2.9 mmol/L (3.5-5.1)
--- NOTE | 2019-10-20 09:27 | RAD REPORT ---
EXAM DESCRIPTION: Irma Single View10/20/2019 7:56 am CLINICAL HISTORY: Shortness of breath COMPARISON: 2012 FINDINGS: Mild bilateral pulmonary opacities. The heart is moderately enlarged. 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
--- NOTE | 2019-10-20 09:44 | EDPHYS ---
Physician Documentation [facility] Name: Ramone Clark Age: 89 yrs Sex: Male : 1930 Arrival Date: 10/20/2019 Time: 07:16 Bed 16 Private MD: ED Physician Trevin Rich HPI: 10/19 07:50 This 89 yrs old Male presents to ER via Wheelchair with complaints of snw Shortness Of Breath. 07:50 The patient has shortness of breath at rest. Onset: The symptoms/episode began/occurred snw suddenly, yesterday, and became worse. Duration: The symptoms are continuous. Associated signs and symptoms: The patient has no apparent associated signs or symptoms. Severity of symptoms: At their worst the symptoms were moderate in the emergency department the symptoms are unchanged. It is unknown whether or not the patient has had similar symptoms in the past. It is unknown whether or not the patient has recently seen a physician. Historical: - Allergies: 07:24 No Known Allergies; ss - PMHx: 07:24 Hyperlipidemia; Hypertension; ss - PSHx: 07:24 pacemaker; valve replacement; ss - Immunization history:: Adult Immunizations up to date. - Social history:: Smoking status: Patient denies any tobacco usage or history of. ROS: 07:49 Eyes: Negative for injury, pain, redness, and discharge, ENT: Negative for injury, snw pain, and discharge, Neck: Negative for injury, pain, and swelling, Cardiovascular: Negative for chest pain, palpitations, and edema. 07:49 Abdomen/GI: Negative for abdominal pain, nausea, vomiting, diarrhea, and constipation, Back: Negative for injury and pain, : Negative for injury, bleeding, discharge, and swelling, MS/Extremity: Negative for injury and deformity, Skin: Negative for injury, rash, and discoloration, Neuro: Negative for headache, weakness, numbness, tingling, and seizure, Psych: Negative for depression, anxiety, suicide ideation, homicidal ideation, and hallucinations. 07:49 Constitutional: Positive for body aches, malaise. 07:49 Respiratory: Positive for shortness of breath, at rest. Exam: 07:46 Head/Face: Normocephalic, atraumatic. Eyes: Pupils equal round and reactive to light, snw extra-ocular motions intact. Lids and lashes normal. Conjunctiva and sclera are non-icteric and not injected. Cornea within normal limits. Periorbital areas with no swelling, redness, or edema. ENT: Nares patent. No nasal discharge, no septal abnormalities noted. Tympanic membranes are normal and external auditory canals are clear. Oropharynx with no redness, swelling, or masses, exudates, or evidence of obstruction, uvula midline. Mucous membranes moist. Neck: Trachea midline, no thyromegaly or masses palpated, and no cervical lymphadenopathy. Supple, full range of motion without nuchal rigidity, or vertebral point tenderness. No Meningismus. 07:46 Abdomen/GI: Soft, non-tender, with normal bowel sounds. No distension or tympany. No guarding or rebound. No evidence of tenderness throughout. Back: No spinal tenderness. No costovertebral tenderness. Full range of motion. MS/ Extremity: Pulses equal, no cyanosis. Neurovascular intact. Full, normal range of motion. Neuro: Awake and alert, GCS 15, oriented to person, place, time, and situation. Cranial nerves II-XII grossly intact. Motor strength 5/5 in all extremities. Sensory grossly intact. Cerebellar exam normal. Normal gait. Psych: Awake, alert, with orientation to person, place and time. Behavior, mood, and affect are within normal limits. 07:46 Constitutional: The patient appears alert, awake, frail, uncomfortable. 07:46 Chest/axilla: Inspection: normal, pacemaker to left upper chest wall. 07:46 Cardiovascular: Rate: normal, Rhythm: regular, Pulses: no pulse deficits are appreciated, Heart sounds: murmur, systolic, grade 3 over 6, Edema: is not appreciated. 07:46 Respiratory: mild respiratory distress is noted, Respirations: shallow respirations, tachypnea, that is moderate, Breath sounds: bronchial sounds, that are moderate. 07:46 Skin: Appearance: Color: pale, Temperature: warm, Moisture: dry. Vital Signs: 07:21 BP 196 / 105; Pulse 60; Resp 18; Temp 97.6(O); Pulse Ox 94% on R/A; Weight 70.31 kg; ss Height 5 ft. 8 in. (172.72 cm); Pain 7/10; 08:50 BP 191 / 97; Pulse 61; Resp 26; Pulse Ox 100% on 2 lpm NC; jr10 10:04 BP 178 / 94; Pulse 60; Resp 23; Pulse Ox 100% on 2 lpm NC; jr10 11:00 BP 184 / 99; Pulse 60; Resp 27; Pulse Ox 100% on 2 lpm NC; jr10 12:54 BP 180 / 88; Pulse 60; Resp 21; Pulse Ox 100% on 2 lpm NC; jr10 13:30 BP 191 / 94; Pulse 50; Resp 26; Pulse Ox 100% ; jr10 14:25 BP 199 / 105; Pulse 62; Resp 24; Pulse Ox 100% ; jr10 15:00 BP 184 / 95; Pulse 60; Resp 26; Pulse Ox 100% on 2 lpm NC; jr10 07:21 Body Mass Index 23.57 (70.31 kg, 172.72 cm) ss MDM: 07:43 Patient medically screened. snw 09:30 Data reviewed: vital signs, nurses notes. Data interpreted: Pulse oximetry: on room air snw is 100 %. Interpretation: acceptable. Counseling: I had a detailed discussion with the patient and/or guardian regarding: the historical points, exam findings, and any diagnostic results supporting the discharge/admit diagnosis, the presence of at least one elevated blood pressure reading (>120/80) during this emergency department visit, lab results, radiology results, the need for further work-up and treatment in the hospital. Response to treatment: There is no appreciated change of the patient's symptoms at this time. Physician consultation: Trevin Rich MD was called at 09:31, was contacted at 09:31, regarding admission, to the telemetry unit. would like consultation with Dr. Dr. Sahu, Hold Coumadin, order flu, consult Dr. Sahu, Consider echo if none recently. 09:47 Physician consultation: Dr. Sahu consulted, no new ECHO order at this time.. snw 10/19 07:36 Order name: Basic Metabolic Panel; Complete Time: 09:05 snw 10/19 07:36 Order name: CBC with Diff; Complete Time: 08:40 snw 10/19 07:36 Order name: LFT's; Complete Time: 09: snw 10/19 07:36 Order name: Magnesium; Complete Time: 09: snw 10/19 07:36 Order name: NT PRO-BNP; Complete Time: 09:05 snw 10/19 07:36 Order name: PT-INR; Complete Time: 09:05 snw 10/19 07:36 Order name: Troponin (emerg Dept Use Only); Complete Time: 09:05 snw 10/19 07:36 Order name: XRAY Chest (1 view); Complete Time: 09:33 snw 10/19 07:44 Order name: Blood Culture Adult (2) snw 10/19 07:44 Order name: COVID-19 snw 10/19 07:44 Order name: Procalcitonin; Complete Time: 09:06 snw 10/19 07:44 Order name: Lactate; Complete Time: 08:55 snw 10/19 09:29 Order name: Flu; Complete Time: 10:43 snw 10/19 12:12 Order name: SARS-COV-2 RT PCR; Complete Time: 12:21 EDMS 10/19 07:36 Order name: EKG; Complete Time: 07:37 snw 10/19 07:36 Order name: Cardiac monitoring; Complete Time: 08:36 snw 10/19 07:36 Order name: EKG - Nurse/Tech; Complete Time: 08:36 snw 10/19 07:36 Order name: IV Saline Lock; Complete Time: 08:36 snw 10/19 07:36 Order name: Labs collected and sent; Complete Time: 08:36 snw 10/19 07:36 Order name: O2 Per Protocol; Complete Time: 07:42 snw 10/19 07:36 Order name: O2 Sat Monitoring; Complete Time: 07:42 snw 10/19 07:54 Order name: Misc. Order: please document resp rate; Complete Time: 08:50 snw EC:10 Clinical impression: Paced rhythm. snw Administered Medications: 10:17 Drug: Potassium Chloride 20 mEq Route: IV; Rate: calculated rate; Site: right jr10 antecubital; 11:00 Follow up: Response: No adverse reaction; IV Status: Completed infusion jr10 13:45 Drug: Lasix 20 mg Route: IVP; Site: right antecubital; jr10 15:57 Follow up: Response: No adverse reaction 10 15:56 Drug: Potassium Chloride 20 mEq Route: IV; Rate: calculated rate; Site: right jr10 antecubital; 15:57 Follow up: IV Status: Infusion continued upon admission jr10 Disposition: 19:54 Co-signature as Attending Physician, Trevin Rich MD I agree with the assessment and tw4 plan of care. Disposition: 10/20/19 09:43 Hospitalization ordered by Dennis Mandujano for Inpatient Admission. Preliminary diagnosis are Acute diastolic (congestive) heart failure, Hypokalemia, Malaise and fatigue. - Bed requested for Telemetry/MedSurg (Inpatient). - Status is Inpatient Admission. jr10 - Condition is Stable. - Problem is new. - Symptoms are unchanged. Signatures: Dispatcher [employer] EDMS Tracy Boyer Shelly, PHOTORESIST PRINTER-C PHOTORESIST PRINTER-Csnw Bettina Saunders RN RN ss Wadley, Terrence, MD MD [address] [place], [place] [address]Marylou nelson RN RN jr10 Corrections: (The following items were deleted from the chart) 14:01 09:43 Hospitalization Ordered by A Delbert MELARA for Inpatient Admission. Preliminary bd diagnosis is Acute diastolic (congestive) heart failure; Hypokalemia; Malaise and fatigue. Bed requested for Telemetry/MedSurg (Inpatient). Status is Inpatient Admission. Condition is Stable. Problem is new. Symptoms are unchanged. snw 16:42 14:01 10/20/2019 09:43 Hospitalization Ordered by A Delbert MELARA for Inpatient Admission. jr10 Preliminary diagnosis is Acute diastolic (congestive) heart failure; Hypokalemia; Malaise and fatigue. Bed requested for Telemetry/MedSurg (Inpatient). Status is Inpatient Admission. Condition is Stable. Problem is new. Symptoms are unchanged. bd
--- NOTE | 2019-10-20 09:44 | ER ---
Nurse's Notes [facility] Name: Ramone Clark Age: 89 yrs Sex: Male : 1930 Arrival Date: 10/20/2019 Time: 07:16 Bed 16 Private MD: Diagnosis: Acute diastolic (congestive) heart failure;Hypokalemia;Malaise and fatigue Presentation: 10/19 07:21 Chief complaint: Patient states: Shortness of breath that began last night. Pt denies ss cough, fever. Also reports back pain for "quite a while". has had XRAY 3 weeks ago. Coronavirus screen: Client denies travel out of the [place] in the last 14 days. shortness of breath, Client presents with at least one sign or symptom that may indicate coronavirus-19. Standard/surgical mask placed on the client. Ebola Screen: Patient denies exposure to infectious person. Patient denies travel to an Ebola-affected area in the 21 days before illness onset. Initial Sepsis Screen: Does the patient meet any 2 criteria? No. Patient's initial sepsis screen is negative. Does the patient have a suspected source of infection? No. Patient's initial sepsis screen is negative. Risk Assessment: Do you want to hurt yourself or someone else? Patient reports no desire to harm self or others. Onset of symptoms was October 19, 2019. 07:21 Method Of Arrival: Wheelchair ss 07:21 Acuity: CARRIE 3 ss Historical: - Allergies: 07:24 No Known Allergies; ss - PMHx: 07:24 Hyperlipidemia; Hypertension; ss - PSHx: 07:24 pacemaker; valve replacement; ss - Immunization history:: Adult Immunizations up to date. - Social history:: Smoking status: Patient denies any tobacco usage or history of. Screenin:20 Abuse screen: Denies threats or abuse. Denies injuries from another. Nutritional jr10 screening: No deficits noted. Tuberculosis screening: No symptoms or risk factors identified. Fall Risk No fall in past 12 months (0 pts). No secondary diagnosis (0 pts). IV access (20 points). Ambulatory Aid- Crutches/Cane/Walker (15 pts). Gait- Weak (10 pts.). Mental Status- Oriented to own ability (0 pts). Assessment: 08:20 General: Appears in no apparent distress. Behavior is calm, cooperative, appropriate jr10 for age. Pain: Denies pain. Neuro: No deficits noted. Level of Consciousness is awake, alert, obeys commands, Oriented to person, place, time, situation, Appropriate for age. Cardiovascular: No deficits noted. Denies chest pain, pt has pacemaker noted to left chest wall. Rhythm is sinus rhythm. Respiratory: Reports shortness of breath at rest on exertion Airway is patent Respiratory effort is even, unlabored, Respiratory pattern is symmetrical, tachypnea Breath sounds are clear bilaterally. the patient has mild shortness of breath. GI: No deficits noted. No signs and/or symptoms were reported involving the gastrointestinal system. Patient currently denies diarrhea, nausea, vomiting. : No deficits noted. No signs and/or symptoms were reported regarding the genitourinary system. EENT: No deficits noted. No signs and/or symptoms were reported regarding the EENT system. Derm: Bruising that is dark purple, green, yellow, scattered bruising noted, pt reports that he is currently on blood thinners. Musculoskeletal: No deficits noted. No signs and/or symptoms reported regarding the musculoskeletal system. 10:20 Reassessment: Pt family contact information: Reece (son): [phone]. jr10 12:56 Reassessment: Patient and/or family updated on plan of care and expected duration. Pain jr10 level reassessed. Patient is alert, oriented x 3, equal unlabored respirations, skin warm/dry/pink. Patient denies pain at this time. Vital Signs: 07:21 BP 196 / 105; Pulse 60; Resp 18; Temp 97.6(O); Pulse Ox 94% on R/A; Weight 70.31 kg; ss Height 5 ft. 8 in. (172.72 cm); Pain 7/10; 08:50 BP 191 / 97; Pulse 61; Resp 26; Pulse Ox 100% on 2 lpm NC; jr10 10:04 BP 178 / 94; Pulse 60; Resp 23; Pulse Ox 100% on 2 lpm NC; jr10 11:00 BP 184 / 99; Pulse 60; Resp 27; Pulse Ox 100% on 2 lpm NC; jr10 12:54 BP 180 / 88; Pulse 60; Resp 21; Pulse Ox 100% on 2 lpm NC; jr10 13:30 BP 191 / 94; Pulse 50; Resp 26; Pulse Ox 100% ; jr10 14:25 BP 199 / 105; Pulse 62; Resp 24; Pulse Ox 100% ; jr10 15:00 BP 184 / 95; Pulse 60; Resp 26; Pulse Ox 100% on 2 lpm NC; jr10 07:21 Body Mass Index 23.57 (70.31 kg, 172.72 cm) ED Course: 07:16 Patient arrived in ED. ds1 07:22 Triage completed. ss 07:24 Arm band placed on right wrist. ss 07:31 Marylou Bradley, JAYME is Primary Nurse. jr10 07:36 Germania Antony FNP-C is PHCP. snw 07:36 Trevin Rich MD is Attending Physician. snw 07:56 XRAY Chest (1 view) In Process Unspecified. EDMS 08:20 Patient has correct armband on for positive identification. seasoning sprayer on. Pulse jr10 ox on. NIBP on. 08:20 Inserted saline lock: 20 gauge in right antecubital area, using aseptic technique. IV jr10 is patent, is intact, with good blood return, Flushed. 08:37 No provider procedures requiring assistance completed. jr10 09:42 Dennis Mandujano MD is Hospitalizing Provider. snw 16:41 Patient admitted, IV remains in place. intact, No redness/swelling at site. Pressure jr10 dressing applied. Administered Medications: 10:17 Drug: Potassium Chloride 20 mEq Route: IV; Rate: calculated rate; Site: right jr10 antecubital; 11:00 Follow up: Response: No adverse reaction; IV Status: Completed infusion jr10 13:45 Drug: Lasix 20 mg Route: IVP; Site: right antecubital; jr10 15:57 Follow up: Response: No adverse reaction jr10 15:56 Drug: Potassium Chloride 20 mEq Route: IV; Rate: calculated rate; Site: right jr10 antecubital; 15:57 Follow up: IV Status: Infusion continued upon admission jr10 Output: 11:00 Urine: 100ml (Voided); Total: 100ml. jr10 15:34 Urine: 250ml (Voided); Total: 350ml. jr10 Outcome: 09:43 Decision to Hospitalize by Provider. snw 16:20 Instructed on the need for admit, Demonstrated understanding of instructions. jr10 16:40 Admitted to [facility]/surg accompanied by tech, via wheelchair, room 222, with oxygen, with jr10 chart, Report called to JAYME Fong 16:40 Condition: improved 16:42 Patient left the ED. jr10 Signatures: Dispatcher [employer] EDMS Germania Antony, STUDENT SERVICES VICE PRESIDENT-C STUDENT SERVICES VICE PRESIDENT-Csnw Josie Barkley ds1 Bettina Saunders RN RN ss Marylou Bradley RN RN jr10 Corrections: (The following items were deleted from the chart) 07:25 07:21 Chief complaint: Patient states: Shortness of breath that began last night. Pt ss denies cough, fever. ss
[2019-10-20] MEDS ORDERED: KCL 20 MEQ/100 mL IVPB 20 MEQ/100 ML BAG IV ONE ×2 (09:47→16:09)
[2019-10-20] MEDS ORDERED: FUROSEMIDE 20 MG/ 2ML VIAL ONE (13:49)
[2019-10-20] MEDS ORDERED: IPRATROPIUM BROM 0.5MG/2.5ML NEB PRN (16:14)
[2019-10-20] MEDS ORDERED: ALBUTEROL 2.5 MG/3 ML NEB SOL NEB PRN (16:14)
[2019-10-20] MEDS ORDERED: ACETAMINOPHEN 500 MG TAB PO PRN (16:14)
[2019-10-20] MEDS ORDERED: FUROSEMIDE 20 MG/ 2ML VIAL IV SCH (17:00)
[2019-10-20 17:02] VITALS: BMI 23.5
[2019-10-20] MEDS ORDERED: OSELTAMIVIR 75 MG CAP PO ONE (19:37)
[2019-10-20] MEDS: cloNIDine HCL 0.1 MG TAB PO SCH (22:21)
[2019-10-20] MEDS: ATORVASTATIN 20 MG TAB PO SCH (22:21)
[2019-10-20] MEDS: ALPRAZOLAM 1 MG TABLET PO SCH (22:21)
[2019-10-20] MEDS: MIRTAZAPINE 15 MG TAB PO SCH (22:23)
[2019-10-20] MEDS: carvediloL 25 MG TAB PO SCH (22:23)
--- NOTE | 2019-10-21 01:53 | HP ---
Date of Admission: 10/20/2019 Chief Complaint: Shortness of breath and not feeling good. History Of Present Illness: An 89-year-old pleasant male patient, who came into emergency room with few days history of not feeling good and about a day or 2 days of shortness of breath complaints. De nies any chest pain. He has some cough and coughing occasionally some colored mucus. No vomiting. No diarrhea. He has chronic back pain that has remained unchanged lately. After he was evaluated in the ER, he was admitted to the hospital. Allergies: NO KNOWN ALLERGIES. Medications: List reviewed that includes alprazolam, amlodipine, atorvastatin, carvedilol, clonidine , furosemide, mirtazapine, warfarin, Kayexalate, and MiraLAX. Review of Systems: Constitutional: As mentioned above. Respiratory: As mentioned above. Musculoskeletal: As mentioned above. All other systems reviewed and negative. Past Medical History: Hypertension, hyperlipidemia, chronic atrial fibrillation, constipation, chron ic kidney disease, compression fracture of spine, anemia, thrombocytopenia, myelodysplastic syndrome, insomnia, osteoporosis, hyperkalemia, aortic stenosis, mitral stenosis. Past Surgical History: Mitral valve surgery in the past, cholecystectomy, toe surgery. Family History: Father had coronary artery disease. Mother had congestive heart failure. Son with hypertension. Daughter had esophageal cancer. Social History: Prior history of smoking, not at present time. Use of alcohol negative. Physical Examination: Vital Signs: When he first came into the emergency room, blood pressure 196/105, pulse 60, respirato ry rate 18, temperature 97.6 degrees Fahrenheit, oxygen saturation 94%. Weight 70.31 kg, height 5 fe et 8 inches. General: Awake, alert, oriented, not in distress. HEENT: Head atraumatic, normocephalic. Conjunctivae nonerythematous. Sclerae white. Mouth, no thr ush or edema noted. Ears/Nose, no mass, lesion, discharge noted. Neck: Supple. No JVD, lymph nodes, bruit, thyromegaly noted. Lungs: Presence of rales in both lung bases. Not using any accessory muscles of respiration. Heart: Presence of systolic murmur. Abdomen: Soft. Bowel sounds normal. No guarding, rigidity, tenderness, mass, hepatosplenomegaly, d istention, or bruit noted. Extremities: No leg edema. No calf tenderness. Skin: No rash, ulcer, cellulitis. Lymphatics: No lymph node enlargement in neck, supraclavicular, infraclavicular region. Neuro: No focal neurological deficit. Chest: Unremarkable. External Genitalia: Deferred. Rectal: Deferred. Laboratory Data: White count 6.4, hemoglobin 12.9, platelets 205. Sodium 145, potassium 2.9, chlori de 105, bicarb 37, BUN 42, creatinine 2.46, glucose 108. Liver function tests unremarkable. Troponi n 0.08. ProBNP 24,711. Second troponin 0.11. Procalcitonin less than 0.05. Lactic acid 0.9. INR 6.65. COVID-19 test came back negative. Influenza B test came back positive. Chest x-ray shows fin dings consistent with congestive heart failure with cardiomegaly. Impression: 1.Congestive heart failure, chronic, diastolic, with acute exacerbation. 2.Influenza B with respiratory manifestation. 3.Hypokalemia. 4.Chronic kidney disease stage 4. 5.Compression fracture of spine. 6.Hypertension. 7.Chronic atrial fibrillation. 8.Hyperlipidemia. Plan: Admit the patient to the hospital for further evaluation and management of this problem. The patient is appropriate for inpatient and is expected to spend 2 midnights in hospital. We will go ah ead and continue home medications per order. We will give Tamiflu for his influenza problem. Give I V Lasix. Replace electrolyte per protocol. Consult Cardiology. We will get echo with Doppler. Det ails were discussed with Dr. Sahu, who has informed me that the patient has severe mitral stenosis and aortic stenosis. He has refused any surgical interventions, so medical management will be gissel nued. I will see him tomorrow for followup. There is no evidence of any bleeding, so we really do n ot need to give any vitamin K or fresh frozen plasma at this point. We will see him tomorrow morning . Details and plan of treatment discussed with the patient. JOSE/MODL Voice ID: [id number]
[2019-10-21 05:48] LABS: Absolute Lymphocytes (CBC) 0.6 K/uL (0.7-4.9); Basophils % 0.6 % (0-1.3); Hematocrit 35.1 % (39.6-49.0); RBC Red Blood Cell Count 3.43 M/uL (4.33-5.43)
[2019-10-21 06:01] LABS: Potassium 3.2 mmol/L (3.5-5.1)
[2019-10-21 06:02] LABS: Protime INR 7.84
[2019-10-21] MEDS: VITAMIN K (ADULT) 10 MG/ML SQ SCH (06:33)
[2019-10-21] MEDS ORDERED: CODEINE 30MG/APAP 300MG TAB PO PRN (07:19)
--- NOTE | 2019-10-21 07:35 | EKG ---
Test Date: 2019-10-20 Test Time: 08:09:52 [employer]: SIENA MEASUREMENT RESULTS: Intervals: Rate: 68 AL: QRSD: 180 QT: 510 QTc: 542 [place]: P: AL: QRS: -77 T: 99 INTERPRETIVE STATEMENTS: Electronic ventricular pacemaker Compared to ECG 04/26/2013 11:37:45 No significant changes Electronically Signed On 10-21-19 07:32:39 CDT by Noble Sahu
--- NOTE | 2019-10-21 08:16 | ECHO ---
HEIGHT: 5 ft 8 in WEIGHT: 154 lb 9.6 oz DATE OF STUDY: 10/20/[address]: Noble Sahu MD 2-DIMENSIONAL: YES M.MODE: YES DOPPLER: YES COLOR FLOW: YES TDS: NO PORTABLE: NO DEFINITY: NO BUBBLE STUDY: NO DIAGNOSIS: SHORTNESS OF BREATH, MITRAL VALVE REPLACEMENT CARDIAC HISTORY: CATHERIZATION: YES SURGERY: YES PROSTHETIC VALVE: YES PACEMAKER: YES MEASUREMENTS (cm) DIASTOLIC (NORMALS) SYSTOLIC (NORMALS) IVSd 1.1 (0.6-1.2) LA Diam 4.5 (1.9-4.0) LVEF 61% LVIDd 3.2 (3.5-5.7) LVIDs 2.2 (2.0-3.5) %FS 32% LVPWd 1.3 (0.6-1.2) Ao Diam 3.0 (2.0-3.7) 2 DIMENSIONAL ASSESSMENT: RIGHT ATRIUM: NORMAL LEFT ATRIUM: DILATED RIGHT VENTRICLE: NORMAL LEFT VENTRICLE: NORMAL TRICUSPID VALVE: NORMAL MITRAL VALVE: STENOTIC PULMONIC VALVE: NORMAL AORTIC VALVE: STENOTIC PERICARDIAL EFFUSION: NONE AORTIC ROOT: NORMAL LEFT VENTRICULAR WALL MOTION: NORMAL DOPPLER/COLOR FLOW: SEVERE AORTIC STENOSIS. MILD TRICUSPID REGURGITATION. MODERATE MITRAL STENOSIS. COMMENTS: SEVERE AORTIC STENOSIS. AORTIC VALVE AREA 0.8 CENTIMETERS SQUARED. MODERATE MITRAL STENOSIS. MITRAL VALVE AREA 1.0 CENTIMETERS SQUARED. MILD TRICUSPID REGURGITATION. 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 NORMAL LEFT VENTRICULAR EJECTION FRACTION. LEFT ATRIAL ENLARGEMENT. TECHNOLOGIST: Makenna DEL REAL
[2019-10-21] MEDS: LIDOCAINE 4% PATCH TOP SCH (08:52)
[2019-10-21] MEDS: cloNIDine HCL 0.1 MG TAB PO SCH ×3 (08:52→21:36)
[2019-10-21] MEDS ORDERED: FUROSEMIDE 20 MG/ 2ML VIAL IV SCH (09:00)
[2019-10-21] MEDS: POTASSIUM CL SA 10 MEQ TAB PO SCH ×2 (09:11→21:35)
[2019-10-21] MEDS: FUROSEMIDE 20 MG/ 2ML VIAL IV SCH ×2 (09:12→16:52)
[2019-10-21] MEDS: carvediloL 25 MG TAB PO SCH ×2 (09:12→21:36)
[2019-10-21] MEDS: OSELTAMIVIR 75 MG CAP PO SCH (09:13)
[2019-10-21] MEDS ORDERED: HALOPERIDOL LACT 5 MG/ML INJ IV PRN (13:11)
[2019-10-21] MEDS ORDERED: HALOPERIDOL LACT 5 MG/ML INJ ONE (13:20)
[2019-10-21] MEDS: ATORVASTATIN 20 MG TAB PO SCH (21:35)
[2019-10-21] MEDS: ALPRAZOLAM 1 MG TABLET PO SCH (21:35)
[2019-10-21] MEDS: MIRTAZAPINE 15 MG TAB PO SCH (21:35)
--- NOTE | 2019-10-22 00:27 | PN ---
Date of Progress Note: 10/21/2019 Subjective: The patient was seen this morning for followup. He was lying in bed, not in distress. Denies any complaints this morning when I saw him. Objective: Vital Signs: Reviewed. HEENT: Unremarkable. Lungs: Bilateral basal rales, better today than yesterday. Not in any respiratory distress. Heart: Sounds normal. Abdomen: Soft. Bowel sounds normal. No guarding, rigidity, tenderness, or distention. Extremities: No leg edema. Laboratory Data: White count 5.8, hemoglobin 12.1, platelets 189. Sodium 147, potassium 3.2, chloride 109, bicarb 35, BUN 40, creatinine 2.19, glucose 94. INR was 7 today. Impression: 1. Congestive heart failure. 2. Coumadin toxicity. 3. Atrial fibrillation. 4. Aortic stenosis. 5. Mitral stenosis. 6. Hypokalemia. Plan: We will go ahead and replace potassium per order. Continue current diuretic therapy. Repeat blood work tomorrow. We will give 10 mg of vitamin K subcutaneous injection x1 dose this morning per order. The patient does not have any evidence of any bleeding, so there is no need for fresh frozen plasma at this point. We will continue Tamiflu for his influenza B and echocardiogram results reviewed with Dr. Sahu and he informed me the patient has moderate mitral stenosis and severe aortic stenosis. I also discussed with him about the patient's atrial fibrillation and warfarin and see if he would suggest to change from warfarin to different anticoagulation like Eliquis. Dr. Sahu has informed me that the patient has nonvalvular atrial fibrillation and it is okay for him to start taking Eliquis 2.5 mg twice a day and we will discontinue warfarin. During the course of day today, the patient was trying to get out of the hospital and he was talking to his son on the phone and was telling him that everybody was plotting something against him. With his agitation and restlessness, Haldol 1 mg every 4 hours as needed was ordered and details were discussed with the patient's son about this also. I will see him tomorrow for followup, possible discharge to go home tomorrow depending on his condition. JOSE/MODL Voice ID: [id number] Report ID: [id number] TAMANNA
--- NOTE | 2019-10-22 00:48 | CON ---
Date of Consultation: 10/20/[address] Mandujano's service on 10/20/2019. I saw the patient on 10/20/2019. Reason For Consultation: Congestive heart failure. History Of Present Illness: Mr. Clark is an 89-year-old white male. He is very well known to me fo r many years. Has had a history of aortic stenosis, hypertension, dyslipidemia, atrial fibrillation, chronic renal disease, had a history of mitral valve repair and a pacemaker, has been taking Coumadi n for his atrial fibrillation for many years. Came in with shortness of breath, weakness. Denied an y fever, chills, or cough. When he came to the emergency room, he was noted to be hypokalemic. His INR was very elevated at 7.84. His creatinine was 2.19. He was slightly hypertensive, short of ten th. Denied any chest pain, nausea or vomiting, or diaphoresis. Denied any palpitation or syncope. Past Medical History: Stated above. Allergies: NONE. Review of Systems: Negative. Social History: Negative. Family History: Noncontributory. Medications: At home include Coumadin, Lipitor, Coreg, clonidine, Xanax, and Lasix. Physical Examination: General: He appeared his stated age. Vital Signs: His pressure was 160/85. He was in a paced rhythm. HEENT: Negative. Neck: Supple with no bruit, lymphadenopathy, JVD, or thyromegaly. Chest: Revealed some rales, both bases. Cardiac: Revealed a paced rhythm. He had what sounds like an aortic stenosis and a mitral stenosis murmur. He had S4 gallops. No rubs. Abdomen: Benign. Extremities: Revealed no clubbing, cyanosis, or edema. Skin: Dry and intact. Pulses were present distally bilaterally. Neurological: He was nonfocal. Diagnostic Data: He had a troponin of 0.12. His BNP was 33,949. He was COVID negative. Potassium was 3.2, creatinine is 2.19. INR is 7.84. Impression And Plan: 1.Zfjjq-og-znqaqre diastolic congestive heart failure, probably secondary to combination of mitral s tenosis and aortic stenosis. Echocardiogram is pending. 2.Elevated INR. Vitamin K has been given by Dr. Mandujano. We discussed the case together and I think E liquis would be a much more reasonable choice considering his INR being so elevated. 3.Hypokalemia. Potassium supplementation has been done. 4.Renal insufficiency. Nephrology may be consulted. 5.Elevated BNP and troponin secondary to hypertension and congestive heart failure. 6.History of mitral valve repair with known mitral stenosis and aortic stenosis by recent echos in [facility] and the office. Mr. Clark is also status post pacemaker placement. Has a history of hy pertension, chronic renal disease, dyslipidemia, and atrial fibrillation. This seemed to be fairly w ell controlled for now. I agree with his present regimen. He needs to be diuresed gently. Potassiu m supplemented. Echocardiogram is pending. Switch from the Coumadin to the Eliquis after the INR is normalized. I would not give any more vitamin Ks at this point. We will see what his INR does in [facility] next day or two. KERRY/ANDRES Voice ID: [id number] Report ID: [id number]
--- NOTE | 2019-10-22 01:03 | PN ---
Date of Progress Note: 10/21/2019 Subjective: The patient was admitted on 10/20/2019 and seen on 10/20/2019 for zfmxv-vh-bldjlyl diast olic congestive heart failure. Today, subjectively he is feeling better. He is not having much shor tness of breath. He is still weak, but denied any dizziness, palpitations, or syncope. Objective: Vital Signs: Stable. He was afebrile. His blood pressure was 140/80. He was in a pace d rhythm. HEENT: Negative. Chest: Reveals a few rales. Cardiac: Revealed aortic stenosis and mitral stenosis. Legs: Showed no edema. Diagnostic Data: His INR remained elevated over 7. His creatinine is 2.19. The new one is pending. Echocardiogram, which was done today, shows moderate aortic stenosis and moderate mitral stenosis. Impression And Plan: Cmcsz-js-okmfgoo diastolic congestive heart failure secondary to a combination of aortic stenosis, mitral stenosis, as well as atrial fibrillation. Mr. Clark is 89. I am not charli lly so sure he is a great candidate for any cardiac intervention and he does not appear to be very ke en on having any invasive procedures. I think we can diurese him gently and see how he does and make decisions later. His potassium was low and was supplemented. He received 1 dose of vitamin K for e levated INR. We will wait and see what that shows, and once his INR is much improved, we can switch him to Eliquis. We can certainly do that as an outpatient. If he does go home today or tomorrow, I will make sure he sees me in the office in the next week or two. KERRY/ANDRES Voice ID: [id number] Report ID: [id number]
[2019-10-22] MEDS: VITAMIN K (ADULT) 10 MG/ML SQ SCH (05:05)
[2019-10-22] MEDS: OSELTAMIVIR 75 MG CAP PO SCH (09:13)
[2019-10-22] MEDS: LIDOCAINE 4% PATCH TOP SCH (09:13)
[2019-10-22] MEDS: carvediloL 25 MG TAB PO SCH ×2 (09:14→20:21)
[2019-10-22] MEDS: FUROSEMIDE 20 MG/ 2ML VIAL IV SCH ×2 (09:14→16:40)
[2019-10-22] MEDS: POTASSIUM CL SA 10 MEQ TAB PO SCH ×2 (09:14→20:22)
[2019-10-22] MEDS: cloNIDine HCL 0.1 MG TAB PO SCH ×3 (09:14→20:22)
[2019-10-22 09:48] LABS: Magnesium 2.7 mg/dL (1.8-2.4); Potassium 4.1 mmol/L (3.5-5.1)
[2019-10-22 09:53] LABS: Protime INR 1.79
[2019-10-22 09:54] LABS: Absolute Lymphocytes (CBC) 0.6 K/uL (0.7-4.9); Basophils % 0.4 % (0-1.3); Hematocrit 38.2 % (39.6-49.0); Lymphocytes % 10.2 % (15.3-44.8); RBC Red Blood Cell Count 3.68 M/uL (4.33-5.43)
--- NOTE | 2019-10-22 10:10 | RAD REPORT ---
EXAM DESCRIPTION: Irma Unger And Kelli (2 Views)10/22/2019 10:04 am CLINICAL HISTORY: Chest pain COMPARISON: October 19 FINDINGS: No significant change mild bilateral interstitial pulmonary opacities Small right pleural effusion The heart is moderately enlarged. Postsurgical changes involve chest. 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 IMPRESSION: Mild CHF
[2019-10-22] MEDS ORDERED: FUROSEMIDE 20 MG/ 2ML VIAL IV ONE (11:43)
[2019-10-22] MEDS: ATORVASTATIN 20 MG TAB PO SCH (20:21)
[2019-10-22] MEDS: APIXABAN 2.5 MG TABLET PO SCH (20:22)
[2019-10-22] MEDS: ALPRAZOLAM 1 MG TABLET PO SCH (20:22)
[2019-10-22] MEDS: MIRTAZAPINE 15 MG TAB PO SCH (20:23)
--- NOTE | 2019-10-23 | PN ---
Date of Progress Note: 10/22/2019 Subjective: The patient was seen for followup this morning. He was sitting at bedside. Denied any complaints. Denies any chest pain, shortness of breath. He was not having any problems with any dif ficulty breathing at rest while he was sitting. Objective: Vital Signs: Reviewed. HEENT: Unremarkable. Lungs: Bilateral rales noted, increased compared to yesterday involving lower 1/3rd of both side angie gs. Heart: Sounds normal. Presence of systolic murmur, unchanged. Abdomen: Soft. Bowel sounds normal. No guarding, rigidity, tenderness, distention. Extremities: No leg edema. Laboratory Data: Sodium 143, potassium 4.1, chloride 104, bicarb 39, BUN 40, creatinine 2.27, glucos e 136, magnesium 2.7. INR 1.79. White count 6, hemoglobin 12.7, and platelets 186. Chest x-ray karlie ws changes of congestive heart failure. Impression: 1.Congestive heart failure, chronic, diastolic, with acute exacerbation. 2.Aortic stenosis, severe. 3.Mitral stenosis, moderate. 4.Chronic kidney disease, stage 3. Plan: We will continue current medication. We will go ahead and continue Lasix. Yesterday, the pat sherry received 1 dose of Haldol and responded very well. The patient is on 20 mg Lasix IV 2 times a d ay and I did give 1 extra dose of 20 mg IV Lasix this morning, so total dose this morning he received was 40 mg. Continue Tamiflu for influenza B. Starting this evening, we will start him on Eliquis 2 .5 mg 2 times a day. We will repeat blood work tomorrow. I did call the patient's son and discussed details with him. The patient's overall mental status is better than yesterday, but he is not compl etely back to his baseline and he is not able to participate in some important decision making proces s. I did call the patient's son and talked to him on the phone, explained him all the details and we also talked about advanced directives and he informed me that the patient would not have wanted any CPR, defibrillation, or ventilator support and DNR order will be written in the chart. We also talke d about getting out of hospital DNR paperwork in place and I informed him about how to take care of t hat paperwork. I will see him tomorrow for followup. JOSE/MODL Voice ID: [id number] Report ID: [id number]
[2019-10-23] MEDS: VITAMIN K (ADULT) 10 MG/ML SQ SCH (07:00)
[2019-10-23 07:54] LABS: Magnesium 2.3 mg/dL (1.8-2.4); Potassium 4.6 mmol/L (3.5-5.1)
[2019-10-23 07:57] LABS: Absolute Lymphocytes (CBC) 0.7 K/uL (0.7-4.9); Basophils % 0.5 % (0-1.3); Hematocrit 36.2 % (39.6-49.0); Lymphocytes % 12.4 % (15.3-44.8); MPV 9.3 fL (7.6-11.3); RBC Red Blood Cell Count 3.43 M/uL (4.33-5.43)
[2019-10-23] MEDS: FUROSEMIDE 20 MG/ 2ML VIAL IV SCH ×2 (08:00→16:19)
[2019-10-23 08:52] LABS: Blood Morphology Comment NOTED (NOT SEEN); Macrocytosis 1+; Platelet Estimate ADEQ; Urine White Blood Cell Casts OK
[2019-10-23] MEDS: POTASSIUM CL SA 10 MEQ TAB PO SCH (09:02)
[2019-10-23] MEDS: OSELTAMIVIR 75 MG CAP PO SCH (09:02)
[2019-10-23] MEDS: cloNIDine HCL 0.1 MG TAB PO SCH ×2 (09:02→13:35)
[2019-10-23] MEDS: LIDOCAINE 4% PATCH TOP SCH (09:03)
[2019-10-23] MEDS: APIXABAN 2.5 MG TABLET PO SCH (09:03)
[2019-10-23] MEDS: carvediloL 25 MG TAB PO SCH (09:03)
[2019-10-23 11:41] VITALS: O2SAT 95
[2019-10-23 17:33] VITALS: TEMP 96.9
[2019-10-23 17:48] VITALS: BP 152/78
--- NOTE | 2019-10-25 00:21 | DS ---
Date of Discharge: 10/23/2019 Disposition: Discharged to go home. Physical Examination: HEENT: Unremarkable. Lungs: Clear to auscultation. Heart: Sounds normal. Abdomen: Soft. Bowel sounds normal. No guarding, rigidity, tenderness, or distention. Extremities: No leg edema. Laboratory Data: Labs done during this hospitalization on 10/20/2019, white count 6.4, hemoglobin 12.9, platelets 205. On day of discharge, white count 5.4, hemoglobin 11.7, and platelet count of 159. On day of discharge, sodium 146, potassium 4.6, chloride 107, bicarb 36, BUN 43, creatinine 2.22, glucose 87, magnesium 2.3. Troponin 0.11 and 0.12. ProBNP was 33,949. Echocardiogram done during this hospitalization shows ejection fraction 61%, severe aortic stenosis, and moderate mitral stenosis. Discharge Medications And Instructions: Continue prior home medications except following changes: 1. Stop warfarin. 2. Start Eliquis 2.5 mg. The patient to take 1 tablet by mouth 2 times a day and take it about 12 hours apart, for example, 8 a.m. and 8 p.m. Take Furosemide 40 mg, 1 tablet by mouth 2 times a day. 3. Prescription for furosemide and Eliquis was sent to [facility] from my office. 4. Use oxygen 2 L/minute per nasal cannula all the time. 5. Follow up at my office next week on , which is 10/29/2019. Hospital Course: An 89-year-old male patient admitted to the hospital with shortness of breath and not feeling good. Please see dictated H and P for more information. The patient was evaluated in the emergency room, admitted to the hospital. He was tested positive for influenza B. His COVID-19 test was negative. The patient also had congestive heart failure changes and he was treated with IV diuretic therapy. He was given Tamiflu. His other home medications were continued. He had coagulopathy with INR elevated in 6-7 range and second time it was between 7-8. There was no evidence of bleeding, but because of INR going up, we gave him 1 dose of vitamin K [address] Sahu from Cardiology was consulted and I did discuss with him. He gave his approval to discontinue warfarin and change it to Eliquis, which we made this change during this hospitalization. He had 1 day periods of confusion and at that time, he was given IV Haldol 1 time dose. He responded to that very well. With IV Lasix, his congestive heart failure symptom improved. He was noted to have significant hypoxia, requiring home oxygen. His room air oxygen saturation was 83% and with oxygen use, he was maintaining adequate oxygenation and Social Service was consulted and once arrangements completed with home oxygen, he was discharged to go home in stable condition. As per my discussion with the patient's son regarding advance directive, DNR order was written in the chart per patient's decision. Overall, prognosis is poor. The patient was also started on lidocaine patch to help with his back and son was advised to continue to do so at home, which is to apply 1 patch in the morning, take it off at night time. Final Diagnoses: 1. Congestive heart failure, chronic, diastolic, with acute exacerbation. 2. Influenza B with respiratory manifestation. 3. Hypokalemia. 4. Chronic kidney disease stage 4. 5. Compression fracture of spine. 6. Hypertension. 7. Chronic atrial fibrillation. 8. Hyperlipidemia. JOSE/MODL Voice ID: [id number] Report ID: [id number] TAMANNA
== END 2019-10-23 17:12 | disposition home or self-care (01) | DRG 291 ==
LOC: ER 07:10 → ERHOLD 11:07 → 2ND 15:46
PROVIDERS: ADMIT Internal Medicine; ATTEND Internal Medicine
DX: I13.0 Hypertensive heart and chronic kidney disease with heart failure and stage 1 through stage 4 chronic kidney disease, or unspecified chronic kidney disease (principal); I50.33 Acute on chronic diastolic (congestive) heart failure; N18.4 Chronic kidney disease, stage 4 (severe); I48.20 Chronic atrial fibrillation, unspecified; G89.29 Other chronic pain; E78.5 Hyperlipidemia, unspecified; M54.9 Dorsalgia, unspecified; J10.1 Influenza due to other identified influenza virus with other respiratory manifestations; E87.6 Hypokalemia; I05.0 Rheumatic mitral stenosis; I35.0 Nonrheumatic aortic (valve) stenosis; T45.515A Adverse effect of anticoagulants, initial encounter; R06.02 Shortness of breath; R09.02 Hypoxemia; Z95.0 Presence of cardiac pacemaker; Z66 Do not resuscitate; Z79.899 Other long term (current) drug therapy; Z90.49 Acquired absence of other specified parts of digestive tract; Z53.29 Procedure and treatment not carried out because of patient's decision for other reasons; Z87.891 Personal history of nicotine dependence; Z79.01 Long term (current) use of anticoagulants; Z20.828 Contact with and (suspected) exposure to other viral communicable diseases
CPT/HCPCS: 36415; 71045; 71046; 80048; 80076; 83605; 83735; 83880; 84145; 84484; 85025; 85610; 87040; 87804; 93005; 93306; 96365; 96375; 99285; J1630; J1940; J3430; J3480; U0003

== ENCOUNTER 2019-10-25 08:44 | Observation (INO) | payer OTHER ==
[2019-10-25] MEDS ORDERED: FENTANYL CITR 100 MCG/2 ML ONE (09:33)
[2019-10-25 09:42] LABS: Absolute Lymphocytes (CBC) 0.5 K/uL (0.7-4.9); Basophils % 0.4 % (0-1.3); Hematocrit 36.5 % (39.6-49.0); Lymphocytes % 6.8 % (15.3-44.8); MPV 9.4 fL (7.6-11.3); RBC Red Blood Cell Count 3.53 M/uL (4.33-5.43)
[2019-10-25 09:52] LABS: Protime INR 1.42
[2019-10-25 09:59] LABS: Albumin 3.3 g/dL (3.4-5.0); Bilirubin Direct 0.3 mg/dL (0-0.2); CKMB Creatine Kinase MB 1.4 ng/mL (0.3-3.6); Magnesium 2.3 mg/dL (1.8-2.4); Potassium 4.8 mmol/L (3.5-5.1); Protein, Total 7.6 g/dL (6.4-8.2); Troponin (Emerg Dept Use Only) 0.05 ng/mL (0.0-0.045)
--- NOTE | 2019-10-25 10:08 | RAD REPORT ---
EXAM DESCRIPTION: CT - [id number] - 10/25/2019 9:56 am CLINICAL HISTORY: trauma, fall with head and neck injury COMPARISON: Head C Spine Mpr Wo Con dated 04/19/2018 TECHNIQUE: Axial 5 mm thick images of the head were obtained. Axial 2 mm thick images of the cervic al spine were obtained with sagittal and coronal reconstruction images generated and reviewed. All CT scans are performed using dose optimization technique as appropriate and may include automated exposure control or mA/KV adjustment according to patient size. FINDINGS: No intracranial hemorrhage, mass, edema or acute intracranial finding. No acute cortical i nfarction. No cortical edema or sulcal effacement. The patient has moderate atrophy and mild chronic ischemic pattern match comparison. Ventricles are in proportion. Mastoid air cells are clear. Patient has chronic left-sided sphenoid sinusitis. No globe or orbit abnormality seen. No acute bone finding s seen. Dense carotid atherosclerotic calcifications in each bulb. Cervical body height and alignment are normal. Disc space narrowing is present throughout the cervica l spine more pronounced at C3-4. Facet joint degenerative changes are present. No central spinal sten osis. Significant bony foraminal stenosis on the left at C4-5. No fracture or acute bony abnormality. Central canal detail is inherently limited. No paraspinal mass or hematoma. IMPRESSION: No hemorrhage, edema or acute intracranial finding. Atrophy and chronic ischemic pattern is similar to March 2018. Cervical spine degenerative change present matching prior imaging. No fracture or acute finding. Cent ral canal detail is inherently limited. Dense carotid bulb calcifications.
--- NOTE | 2019-10-25 11:04 | ER ---
Nurse's Notes [facility] Name: Ramone Clark Age: 89 yrs Sex: Male : 1930 Arrival Date: 10/25/2019 Time: 08:45 Bed 6 Private MD: Diagnosis: Weakness Presentation: 10/24 09:13 Chief complaint: Became dizzy while standing beside bed to urinate, fell onto carpeted floor. Denies LOC. Skin tears x 4 to upper arm, not bleeding at this time. On home O2 \T\ 2LNC. Coronavirus screen: At this time, the client does not indicate any symptoms associated with coronavirus-19. Ebola Screen: No symptoms or risks identified at this time. Initial Sepsis Screen: Does the patient meet any 2 criteria? No. Patient's initial sepsis screen is negative. Does the patient have a suspected source of infection? No. Patient's initial sepsis screen is negative. Risk Assessment: Do you want to hurt yourself or someone else? Patient reports no desire to harm self or others. Onset of symptoms was October 25, 2019. 09:13 Method Of Arrival: Wheelchair 09:13 Acuity: CARRIE 3 hb Triage Assessment: 09:17 General: Appears in no apparent distress. Behavior is calm, cooperative. Pain: Pain hb currently is 2 out of 10 on a pain scale. EENT: No signs and/or symptoms were reported regarding the EENT system. Neuro: Level of Consciousness is awake, alert, obeys commands, Oriented to person, place, time, situation, Reports dizziness. Cardiovascular: Capillary refill < 3 seconds Patient's skin is warm and dry. Rhythm is atrial pacer. Respiratory: Airway is patent Respiratory effort is even, unlabored, Respiratory pattern is regular, symmetrical. GI: No signs and/or symptoms were reported involving the gastrointestinal system. : No signs and/or symptoms were reported regarding the genitourinary system. Derm: Skin is pink, warm \T\ dry. skin tears x 4 to left upper arm. Musculoskeletal: No signs and/or symptoms reported regarding the musculoskeletal system. Historical: - Allergies: 09:16 No Known Allergies; hb - Home Meds: 09:16 alprazolam 1 mg Oral tab 2 tabs nightly [Active]; amlodipine 5 mg tab 1 tab twice a day hb [Active]; atorvastatin 20 mg Oral tab 1 tab once daily [Active]; carvedilol 25 mg Oral tab 1 tab 2 times per day [Active]; clonidine HCl 0.1 mg Oral tab 1 tab 3 times per day [Active]; furosemide 40 mg Oral tab 1 tab once daily [Active]; mirtazapine 15 mg Oral tab 1 tab once daily [Active]; Eliquis oral oral [Active]; - PMHx: 09:16 Hyperlipidemia; Hypertension; CHF; hb - PSHx: 09:16 pacemaker; valve replacement; hb - Immunization history:: Adult Immunizations up to date. - Social history:: Smoking status: Patient denies any tobacco usage or history of. Patient/guardian denies using alcohol, street drugs, The patient lives with family. - Family history:: not pertinent. Screenin:18 Abuse screen: Denies threats or abuse. Denies injuries from another. Nutritional hb screening: No deficits noted. Tuberculosis screening: No symptoms or risk factors identified. Fall Risk Total Mann Fall Scale indicates Low Risk Score (25-44 pts). Fall prevention measures have been instituted. Side Rails Up X 2 Frequent Obs/Assesments occuring As available Patient and Family Educated on Fall Prevention Program and strategies. Assessment: 09:18 General: see triage assessment. hb 10:14 Reassessment: Patient appears in no apparent distress at this time. Patient and/or hb family updated on plan of care and expected duration. Pain level reassessed. Patient is alert, oriented x 3, equal unlabored respirations, skin warm/dry/pink. 11:27 Reassessment: Patient appears in no apparent distress at this time. No changes from hb previously documented assessment. Patient and/or family updated on plan of care and expected duration. Pain level reassessed. Admission ordered, awaiting room assignment at this time. Vital Signs: 09:13 BP 190 / 95; Pulse 61; Resp 17; Temp 98.2; Pulse Ox 100% on 2 lpm NC; Weight 80 kg; hb Height 5 ft. 9 in. (175.26 cm); Pain 2/10; 10:14 BP 167 / 108; Pulse 61; Resp 21; Pulse Ox 98% on 2 lpm NC; hb 11:27 BP 187 / 99; Pulse 59; Resp 21; Pulse Ox 99% 2 lpm ; hb 12:32 BP 160 / 81; Pulse 60; Resp 20; Pulse Ox 100% on 2 lpm NC; hb 09:13 Body Mass Index 26.05 (80.00 kg, 175.26 cm) ED Course: 08:45 Patient arrived in ED. ds1 09:02 Perry Warner MD is Attending Physician. ma2 09:15 Triage completed. hb 09:16 Arm band placed on. hb 09:18 Patient has correct armband on for positive identification. Bed in low position. Call light in reach. Side rails up X2. sand bobber on. Pulse ox on. NIBP on. 09:31 Lurdes Herrera, RN is Primary Nurse. sv 09:33 Initial lab(s) drawn, by tx, sent to lab. Inserted saline lock: 20 gauge in right 3 forearm, using aseptic technique. Blood collected. 09:40 EKG done, by ED staff, reviewed by Perry Warner MD. 3 09:57 CT Head C Spine In Process Unspecified. EDMS 09:57 CT completed. Patient tolerated procedure well. Patient moved back from CT. bq 10:59 Chest Single View XRAY In Process Unspecified. EDMS 10:59 Lumbar Spine (3 Views) XRAY In Process Unspecified. EDMS 11:04 Zoltan Mandujano MD is Hospitalizing Provider. ma2 Administered Medications: No medications were administered Outcome: 11:04 Decision to Hospitalize by Provider. ma2 13:24 Patient left the ED. hb Signatures: Dispatcher [employer] EDMS Ruchi Tejada RN RN Zahraa Gordillo bq Josie Barkley ds1 Lurdes Herrera, RN RN Kristin Max [facility] Perry Warner MD MD ma2 Eliza Mackey RN RN ll1 Corrections: (The following items were deleted from the chart) 09:19 09:13 Chief complaint: Became dizzy while standing beside bed to urinate, fell onto carpeted floor. Denies LOC. Skin tears x 4 to upper arm, not bleeding at this time. hb 09:19 09:18 Fall Risk Total Mann Fall Scale indicates Low Risk Score (25-44 pts). Fall hb prevention measures have been instituted. Side Rails Up X 2 Frequent Obs/Assesments occuring Family Present and informed to notify staff if they need to leave bedside As available Patient and Family Educated on Fall Prevention Program and strategies. hb 12:45 12:32 BP 160 / 81; Pulse 60bpm; Resp 20bpm; Pulse Ox 100%; ll1 hb
--- NOTE | 2019-10-25 11:04 | EDPHYS ---
Physician Documentation [facility] Name: Ramone Clark Age: 89 yrs Sex: Male : 1930 Arrival Date: 10/25/2019 Time: 08:45 Bed 6 Private MD: ED Physician Perry Warner HPI: 10/24 11:02 This 89 yrs old Male presents to ER via Wheelchair with complaints of Fall ma2 Injury. 11:02 Onset: The symptoms/episode began/occurred gradually. Severity of symptoms: At their ma2 worst the symptoms were moderate. The patient has experienced similar episodes in the past. Historical: - Allergies: 09:16 No Known Allergies; hb - Home Meds: 09:16 alprazolam 1 mg Oral tab 2 tabs nightly [Active]; amlodipine 5 mg tab 1 tab twice a day hb [Active]; atorvastatin 20 mg Oral tab 1 tab once daily [Active]; carvedilol 25 mg Oral tab 1 tab 2 times per day [Active]; clonidine HCl 0.1 mg Oral tab 1 tab 3 times per day [Active]; furosemide 40 mg Oral tab 1 tab once daily [Active]; mirtazapine 15 mg Oral tab 1 tab once daily [Active]; Eliquis oral oral [Active]; - PMHx: 09:16 Hyperlipidemia; Hypertension; CHF; hb - PSHx: 09:16 pacemaker; valve replacement; hb - Immunization history:: Adult Immunizations up to date. - Social history:: Smoking status: Patient denies any tobacco usage or history of. Patient/guardian denies using alcohol, street drugs, The patient lives with family. - Family history:: not pertinent. ROS: 11:02 Constitutional: Negative for fever, chills, and weight loss. ma2 11:02 All other systems are negative. Exam: 11:02 Constitutional: This is a well developed, well nourished patient who is awake, alert, ma2 and in no acute distress. ENT: Nares patent. No nasal discharge, no septal abnormalities noted. Tympanic membranes are normal and external auditory canals are clear. Oropharynx with no redness, swelling, or masses, exudates, or evidence of obstruction, uvula midline. Mucous membranes moist. Neck: Trachea midline, no thyromegaly or masses palpated, and no cervical lymphadenopathy. Supple, full range of motion without nuchal rigidity, or vertebral point tenderness. No Meningismus. Chest/axilla: Normal chest wall appearance and motion. Nontender with no deformity. No lesions are appreciated. Cardiovascular: Regular rate and rhythm with a normal S1 and S2. No gallops, murmurs, or rubs. Normal PMI, no JVD. No pulse deficits. Respiratory: Lungs have equal breath sounds bilaterally, clear to auscultation and percussion. No rales, rhonchi or wheezes noted. No increased work of breathing, no retractions or nasal flaring. Abdomen/GI: Soft, non-tender, with normal bowel sounds. No distension or tympany. No guarding or rebound. No evidence of tenderness throughout. Back: No spinal tenderness. No costovertebral tenderness. Full range of motion. Skin: Warm, dry with normal turgor. Normal color with no rashes, no lesions, and no evidence of cellulitis. MS/ Extremity: Pulses equal, no cyanosis. Neurovascular intact. Full, normal range of motion. Neuro: Awake and alert, GCS 15, oriented to person, place, time, and situation. Cranial nerves II-XII grossly intact. Motor strength 5/5 in all extremities. Sensory grossly intact. Cerebellar exam normal. Normal gait. Vital Signs: 09:13 BP 190 / 95; Pulse 61; Resp 17; Temp 98.2; Pulse Ox 100% on 2 lpm NC; Weight 80 kg; hb Height 5 ft. 9 in. (175.26 cm); Pain 2/10; 10:14 BP 167 / 108; Pulse 61; Resp 21; Pulse Ox 98% on 2 lpm NC; hb 11:27 BP 187 / 99; Pulse 59; Resp 21; Pulse Ox 99% 2 lpm ; hb 12:32 BP 160 / 81; Pulse 60; Resp 20; Pulse Ox 100% on 2 lpm NC; hb 09:13 Body Mass Index 26.05 (80.00 kg, 175.26 cm) hb MDM: 09:02 Patient medically screened. ma2 11:02 Differential diagnosis: abrasion, contusion, fracture. Data reviewed: vital signs, ma2 nurses notes. Counseling: I had a detailed discussion with the patient and/or guardian regarding: the historical points, exam findings, and any diagnostic results supporting the discharge/admit diagnosis, the presence of at least one elevated blood pressure reading (>120/80) during this emergency department visit, the need for further work-up and treatment in the hospital. Response to treatment: the patient's symptoms have markedly improved after treatment. ED course: discussed with dr. rios who recommends admission . 10/24 09:15 Order name: Basic Metabolic Panel; Complete Time: 10:30 10/24 09:15 Order name: CBC with Diff; Complete Time: 10:30 10/24 09:15 Order name: Ckmb; Complete Time: 10:30 10/24 09:15 Order name: CPK; Complete Time: 10:30 10/24 09:15 Order name: Hepatic Function; Complete Time: :30 10/24 09:15 Order name: Lipase; Complete Time: :30 10/24 09:15 Order name: CT Head C Spine; Complete Time: 10:30 10/24 09:15 Order name: Magnesium; Complete Time: 10:30 10/24 09:15 Order name: Protime (+inr); Complete Time: 10:30 10/24 09:15 Order name: Ptt, Activated; Complete Time: 10:30 10/24 09:15 Order name: Troponin (emerg Dept Use Only); Complete Time: 10:30 10/24 09:15 Order name: EKG; Complete Time: 09:16 10/24 10:32 Order name: Chest Single View XRAY 10/24 10:32 Order name: Lumbar Spine (3 Views) XRAY 10/24 09:15 Order name: Cardiac monitoring; Complete Time: :43 10/24 09:15 Order name: EKG - Nurse/Tech; Complete Time: :43 10/24 09:15 Order name: IV Saline Lock; Complete Time: :43 10/24 09:15 Order name: Labs collected and sent; Complete Time: :10/24 09:15 Order name: NPO; Complete Time: :44 10/24 09:15 Order name: O2 Per Protocol; Complete Time: :10/24 09:15 Order name: O2 Sat Monitoring; Complete Time: :10/24 11:07 Order name: Dressing - Wound; Complete Time: 11:27 [facility] 10/24 11:15 Order name: CONS Pharmacy Consult [facility] 10/24 11:15 Order name: [facility] Administered Medications: No medications were administered Disposition: 10/25/19 11:04 Hospitalization ordered by Zoltan Rios for Observation. Preliminary diagnosis is Weakness. - Bed requested for Telemetry/MedSurg (observation). - Status is Observation. hb - Condition is Stable. - Problem is new. - Symptoms are unchanged. Signatures: Dispatcher [employer] EDSD Lurdes Herrera RN RN Perry Warner MD MD [facility] Ximena Shane Corrections: (The following items were deleted from the chart) 12:21 11:04 Hospitalization Ordered by Zoltan Rios MD for Observation. Preliminary diagnosis eb is Weakness. Bed requested for Telemetry/MedSurg (observation). Status is Observation. Condition is Stable. Problem is new. Symptoms are unchanged. [facility] 13:24 12:21 10/25/2019 11:04 Hospitalization Ordered by Zoltan Rios MD for Observation. hb Preliminary diagnosis is Weakness. Bed requested for Telemetry/MedSurg (observation). Status is Observation. Condition is Stable. Problem is new. Symptoms are unchanged. eb
--- NOTE | 2019-10-25 11:57 | RAD REPORT ---
EXAM DESCRIPTION: RAD - Chest Single View - 10/25/2019 10:59 am CLINICAL HISTORY: COUGH, dizziness, weakness, syncope COMPARISON: Chest exam October 21 TECHNIQUE: AP portable chest image was obtained 10/25/2019 10:59 am . FINDINGS: Chronic interstitial lung pattern is present. Lung markings have decreased in prominence. No progressive lung parenchymal process seen. Pronounced enlargement of the cardiac silhouette again noted. Central vasculature has diminished in prominence. Pacemaker and sternotomy wires are again not ed. No pneumothorax. No acute bony abnormality seen. No acute aortic findings suspected. IMPRESSION: CHF/volume overload findings have improved. No new or progressive lung parenchymal findi ng. Pronounced cardiomegaly similar to comparison.
--- NOTE | 2019-10-25 11:58 | RAD REPORT ---
EXAM DESCRIPTION: RAD - Lumbar Spine 3 Views - 10/25/2019 10:59 am CLINICAL HISTORY: low back pain COMPARISON: Lumbar Spine 3 Views dated 09/29/2019 FINDINGS: A three-view lumbar spine examination was performed. Osteopenic and degenerative bony changes are again noted. The L1 and T11 compression fractures have n ot changed. No new lumbar compression fracture. No subluxation abnormality peer no pathologic changes seen. IMPRESSION: No new lumbar spine compression fracture.
[2019-10-25] MEDS ORDERED: ACETAMINOPHEN 500 MG TAB PO PRN (13:54)
[2019-10-25] MEDS ORDERED: SODIUM POLYSTYRENE SULFONATE 30 GM PO SCH (15:15)
[2019-10-25] MEDS: SOD POLYSTYREN SUL 15 GM/60 ML UCUP PO SCH (15:31)
[2019-10-25] MEDS: FUROSEMIDE 40 MG TABLET PO SCH (15:34)
[2019-10-25] MEDS: cloNIDine HCL 0.1 MG TAB PO SCH ×2 (15:37→22:13)
[2019-10-25 18:43] VITALS: BMI 21.4
--- NOTE | 2019-10-25 21:13 | HP ---
Date of Admission: 10/25/2019 Chief Complaint: Weakness and fall. History Of Present Illness: This is an 89-year-old male patient who was in the hospital recently with congestive heart failure and influenza B type of problem. The patient was discharged to go home day before yesterday. He lives at home by himself. This morning, the patient's son called and informed me that the patient fell down this morning and he was not able to get up, so son had to go to his house to help him get up and after the son called and talked to me and he was concerned about the patient living by himself. The patient is having significant generalized weakness and the patient's family members; son works and daughter is not able to help stay there, so there is no family member available to help and take care of him at home and he needs 24 hour care from what I understand by talking to this patient's son considering significant weakness problem. Every time he tries to get up, he feels very weak, shaky. With all that concerns, son was advised to bring patient to the emergency room and after the patient was evaluated in the ER, he was admitted to the hospital. I saw him in the emergency room this morning. Allergies: NO KNOWN ALLERGIES. Medications: List reviewed. Review of Systems: Constitutional: As mentioned above. Musculoskeletal: Has back pain, which is chronic with arthritis and compression fracture of spine. All other systems reviewed and negative. Past Medical History: Significant for hypertension, hyperlipidemia, chronic atrial fibrillation, constipation, chronic kidney disease stage 4, compression fracture of lumbar spine, anemia, thrombocytopenia, myelodysplastic syndrome, insomnia, osteoporosis, hyperkalemia, severe aortic stenosis, moderate mitral stenosis, chronic diastolic congestive heart failure. Past Surgical History: Mitral valve surgery in the past, cholecystectomy, toe surgery. Family History: Father had coronary artery disease. Mother had congestive heart failure. Son with hypertension. Daughter had esophageal cancer. Social History: Prior history of smoking, not at present time. Use of alcohol negative. Physical Examination: Vital Signs: His height 5 feet 8 inches, weight 133 pound, temperature 98.2, pulse 61, respiratory rate 17, blood pressure 190/95. General: Awake, alert, oriented, not in distress. HEENT: Head atraumatic, normocephalic. Conjunctivae nonerythematous. Sclerae white. Mouth, no thrush or edema noted. Ears/Nose, no mass, lesion, discharge noted. Neck: Supple. No JVD, lymph nodes, bruit, thyromegaly noted. Lungs: Bilateral good equal air entry. Clear to auscultation. No rhonchi. No rales. Heart: Normal heart sounds. Presence of systolic murmur. No gallop Abdomen: Soft, bowel sounds normal. No guarding, rigidity, tenderness, mass, hepatosplenomegaly, distention, or bruit noted. Extremities: No leg edema. No calf tenderness. Skin: The patient has multiple bruises over his extremities. Lymphatics: No lymph node enlargement in neck, supraclavicular, infraclavicular region. Neuro: No focal neurological deficit. Chest: Unremarkable. External Genitalia: Deferred. Rectal: Deferred. Laboratory Data: White count 7.5, hemoglobin 12.4, platelets are 181. INR 1.4. Sodium 142, potassium 4.8, chloride 102, bicarb 36, BUN 48, creatinine 2.63, glucose 106. Liver function tests unremarkable. Lipase 175. Troponin 0.05. CAT scan of the head and cervical spine without contrast, no acute changes noted. Chest x-ray pending. Impression: 1. Generalized weakness. 2. Debility. 3. Aortic stenosis, severe. 4. Mitral stenosis, moderate. 5. Congestive heart failure, chronic, diastolic. 6. Chronic atrial fibrillation. 7. Hypertension. 8. Hyperlipidemia. 9. Chronic kidney disease, stage 4. 10. Compression fracture of L1 spine. 11. Anemia. 12. Thrombocytopenia. 13. Chronic anticoagulation therapy. 14. Myelodysplastic syndrome. 15. Insomnia. Plan: Admit the patient to hospital for further evaluation and management of this problem. The patient is appropriate for observation. We will go ahead and continue his home medications per order. We will consult Social Service and I did talk to the patient's son this morning and I also talked to patient in the emergency room when I saw him. We talked about option of going into long-term for physical therapy and other option will be to consider inpatient rehab stay if the patient is eligible to go to inpatient rehab floor, so we will look into all those different options. We will write DNR order as per the patient's decision on advance directives and continue home medications per order. I will see him tomorrow for followup. JOSE/MODL Voice ID: [id number] [id number]
[2019-10-25] MEDS: carvediloL 25 MG TAB PO SCH (22:13)
[2019-10-25] MEDS: MIRTAZAPINE 15 MG TAB PO SCH (22:13)
[2019-10-25] MEDS: ALPRAZOLAM 1 MG TABLET PO SCH (22:14)
[2019-10-25] MEDS: APIXABAN 2.5 MG TABLET PO SCH (22:14)
[2019-10-25] MEDS: ATORVASTATIN 20 MG TAB PO SCH (22:14)
[2019-10-26] MEDS: FUROSEMIDE 40 MG TABLET PO SCH ×2 (10:34→17:02)
[2019-10-26] MEDS: cloNIDine HCL 0.1 MG TAB PO SCH ×3 (10:34→21:31)
[2019-10-26] MEDS: APIXABAN 2.5 MG TABLET PO SCH ×2 (10:34→21:31)
[2019-10-26] MEDS: carvediloL 25 MG TAB PO SCH ×2 (10:35→21:32)
[2019-10-26] MEDS: ATORVASTATIN 20 MG TAB PO SCH (21:31)
[2019-10-26] MEDS: ALPRAZOLAM 1 MG TABLET PO SCH (21:31)
[2019-10-26] MEDS: MIRTAZAPINE 15 MG TAB PO SCH (21:32)
--- NOTE | 2019-10-26 23:49 | PN ---
Date of Progress Note: 10/26/2019 Subjective: The patient was seen this morning for followup. He was lying in bed, not in distress. No new complaints or problems reported. Objective: Vital Signs: Reviewed. HEENT: Unremarkable. Lungs: Clear to auscultation. Heart: Sounds normal. Abdomen: Soft. Bowel sounds normal. No guarding, rigidity, tenderness, or distention. Extremities: No leg edema. Impression: 1.Generalized weakness. 2.Debility. 3.Compression fracture of lumbar spine. 4.Chronic anticoagulation therapy. Plan: We will continue current medication. Physical therapy to help ambulate the patient. Rehab co nsultation was requested for inpatient rehab, but the patient and family denied for the patient to go to inpatient rehab and Social Service was consulted for custodial facility placement and so so mariana melo did call me back and informed me that she had a long discussion with the [facility] and they do not want him to go to jail under skilled care. They want the patient t o go to jail as a private pay. So, it appears that the patient will be at the jail f or long-term care now and they have selected [facility] and social studies department chair is assisting with this arrangement. Hopefully, we might be able to discharge him to go to [facility] tomorrow. JOSE/MODL Voice ID: [id number] Report ID: [id number]
[2019-10-27] MEDS ORDERED: HALOPERIDOL LACT 5 MG/ML INJ IV PRN (07:31)
[2019-10-27] MEDS: APIXABAN 2.5 MG TABLET PO SCH ×2 (09:16→21:47)
[2019-10-27] MEDS: carvediloL 25 MG TAB PO SCH ×2 (09:16→21:46)
[2019-10-27] MEDS: FUROSEMIDE 40 MG TABLET PO SCH ×2 (09:16→16:29)
[2019-10-27] MEDS: cloNIDine HCL 0.1 MG TAB PO SCH ×3 (09:16→21:47)
[2019-10-27] MEDS: SOD POLYSTYREN SUL 15 GM/60 ML UCUP PO SCH (09:17)
[2019-10-27] MEDS: ATORVASTATIN 20 MG TAB PO SCH (21:46)
[2019-10-27] MEDS: ALPRAZOLAM 1 MG TABLET PO SCH (21:47)
[2019-10-27] MEDS: MIRTAZAPINE 15 MG TAB PO SCH (21:47)
--- NOTE | 2019-10-27 22:51 | PN ---
Date of Progress Note: 10/27/2019 Subjective: The patient was seen this morning for followup. When I saw him, he was lying in bed wit h his eyes closed, restless, trying to get out of bed, and will not keep any covers on. He does not answer any questions, not in any respiratory distress. Objective: HEENT: Unremarkable. Lungs: Clear to auscultation. Heart: Sounds normal. Abdomen: Soft. Bowel sounds normal. No guarding, rigidity, tenderness, distention. Extremities: No leg edema. Impression: 1.Generalized weakness. 2.Debility. 3.Compression fracture of spine. 4.Dementia. Plan: The patient had similar problem during his last hospital stay and same problem is happening at this time. He responded well to Haldol last time. This morning as soon as I saw him like this, Luis dol was ordered and we will monitor him once his condition improves. Then, our plan is to discharge him to go to detention, which may happen tomorrow once arrangements get completed by Social Servic e. I believe the patient has underlying dementia problem that definitely manifests with confusion an d altered mental status while in the hospital like we have seen during this admission and prior admis kimberly. JOSE/MODL Voice ID: [id number] Report ID: [id number]
[2019-10-28 08:51] VITALS: O2SAT 95
[2019-10-28] MEDS: FUROSEMIDE 40 MG TABLET PO SCH ×2 (10:08→16:40)
[2019-10-28] MEDS: APIXABAN 2.5 MG TABLET PO SCH ×2 (10:09→21:21)
[2019-10-28] MEDS: cloNIDine HCL 0.1 MG TAB PO SCH ×3 (10:10→21:21)
[2019-10-28] MEDS: carvediloL 25 MG TAB PO SCH ×2 (10:10→21:21)
[2019-10-28] MEDS: MIRTAZAPINE 15 MG TAB PO SCH (21:21)
[2019-10-28] MEDS: ALPRAZOLAM 1 MG TABLET PO SCH (21:21)
[2019-10-28] MEDS: ATORVASTATIN 20 MG TAB PO SCH (21:21)
[2019-10-28 21:22] VITALS: BP 142/74
[2019-10-28 23:18] VITALS: TEMP 97.5
--- NOTE | 2019-10-29 06:14 | DS ---
Date of Discharge: 10/28/2019 Disposition: Discharged to go to residential. Physical Examination: HEENT: Unremarkable. Lungs: Clear to auscultation. Heart: Sounds normal. Abdomen: Soft. Bowel sounds normal. No guarding, rigidity, tenderness, or distention. Extremities: No leg edema. Laboratory Data: Sodium 142, potassium 4.8, chloride 102, bicarb 36, BUN 48, creatinine 2.63, glucose 106. White count 7.5, hemoglobin 12.4, platelets 181. Hospital Course: 89-year-old pleasant male patient, admitted to the hospital with weakness and fall. Please see dictated H and P for more information. After patient was evaluated in the ER, he was admitted to the hospital. Patient has significant generalized weakness and his home medications were continued. I believe he has some underlying dementia also which is manifested now during last hospital admission as well as this hospital admission with altered mental status, delirium type of problem. He responded very well to Haldol and overall condition improved. I did talk to patient's family member. Advanced directives discussed and DNR order was written in the chart. We also talked about disposition. Family has made arrangements with help of Social Service for him to go to residential and, once arrangements completed, the patient was discharged to go to residential today in stable condition. Overall prognosis is poor. Final Diagnoses: 1. Generalized weakness. 2. Debility. 3. Aortic stenosis, severe. 4. Mitral stenosis, moderate. 5. Congestive heart failure, chronic, diastolic. 6. Chronic atrial fibrillation. 7. Hypertension. 8. Hyperlipidemia. 9. Chronic kidney disease, stage 4. 10. Compression fracture of L1 spine. 11. Anemia due to chronic kidney disease. 12. Thrombocytopenia. 13. Chronic anticoagulation therapy. 14. Myelodysplastic syndrome. 15. Insomnia. Discharge Medications And Instructions: See copy of discharge order for details. JOSE/MODL Voice ID: [id number] Report ID: [id number] TAMANNA
== END 2019-10-29 00:10 ==
LOC: ER 08:44 → ERHOLD 11:13 → 2ND 12:56
PROVIDERS: ADMIT Internal Medicine; ATTEND Internal Medicine
DX: R53.1 Weakness (principal); R53.81 Other malaise; I13.0 Hypertensive heart and chronic kidney disease with heart failure and stage 1 through stage 4 chronic kidney disease, or unspecified chronic kidney disease; I50.32 Chronic diastolic (congestive) heart failure; N18.4 Chronic kidney disease, stage 4 (severe); D63.1 Anemia in chronic kidney disease; I35.0 Nonrheumatic aortic (valve) stenosis; I05.0 Rheumatic mitral stenosis; I48.20 Chronic atrial fibrillation, unspecified; E78.5 Hyperlipidemia, unspecified; M48.56XA Collapsed vertebra, not elsewhere classified, lumbar region, initial encounter for fracture; D69.6 Thrombocytopenia, unspecified; D46.9 Myelodysplastic syndrome, unspecified; G47.00 Insomnia, unspecified; M81.0 Age-related osteoporosis without current pathological fracture; E87.5 Hyperkalemia; F03.90 Unspecified dementia, unspecified severity, without behavioral disturbance, psychotic disturbance, mood disturbance, and anxiety; Z66 Do not resuscitate; Z20.828 Contact with and (suspected) exposure to other viral communicable diseases; Z79.01 Long term (current) use of anticoagulants; Z95.0 Presence of cardiac pacemaker; Z95.2 Presence of prosthetic heart valve; Z90.49 Acquired absence of other specified parts of digestive tract; Z82.49 Family history of ischemic heart disease and other diseases of the circulatory system; Z80.0 Family history of malignant neoplasm of digestive organs
CPT/HCPCS: 93005; 85025; 80048; 36415; 83735; 82550; 85610; 80076; 85730; 84484; 82553; 83690; 70450; 72125; 71045; 72100; 97112; 97116 ×4; 97161; 97530 ×5; 99285; U0002 ×2; G0378 ×6; J3010